=== PATIENT | female | born 1965 | race Caucasian/White ===

== ENCOUNTER → 2017-03-13 | Outpatient (CLI) | payer OTHER, SELFPAY | PROVIDERS: Visit Provider Nurse Practitioner Obstetrics & Gynecology | DX: Z12.31 Encounter for screening mammogram for malignant neoplasm of breast (principal) | CPT/HCPCS: 77067; G0202 ==

== ENCOUNTER → 2018-04-03 09:53 | Outpatient (CLI) | payer OTHER, SELFPAY ==
--- NOTE | 2018-04-03 09:56 | XR_ITS ---
XR chest 2V CLINICAL INDICATION: ITS.REASON: SOB ORDERING PHYSICIAN: German Broderick MD PATIENT AGE: 52 years Comparison: 01/05/2014 FINDINGS: Unremarkable cardiovascular structures. No suspicious nodules lobar consolidation or collapse. No acute bony anomalies. IMPRESSION: No change with no acute finding
== END ==
PROVIDERS: PCP Family Medicine; Visit Provider Family Medicine
DX: R06.02 Shortness of breath (principal)
CPT/HCPCS: 71046

== ENCOUNTER → 2018-04-08 14:28 | Outpatient (CLI) | payer OTHER, SELFPAY ==
--- NOTE | 2018-04-08 14:43 | CT_ITS ---
CT chest w con HISTORY: ITS.REASON: SOA,TOBACCO USE,RESPIRATORY CRACKLES LT CHEST WALL ORDERING PHYSICIAN: Michelle Perales MD PATIENT AGE: 52 years COMPARISON: None TECHNIQUE: Axial images obtained following the administration of 75 mL of Isovue 370 . Sagittal, and coronal reformatted images are also generated and reviewed. All CT scans at the facility use one or more dose reduction, viz: automated exposure control, ma/kV adjustment per patient size (including targeted exams where dose is matched to indication, i.e. head), or iterative reconstruction technique. FINDINGS: No evidence of aortic aneurysm or dissection. No evidence of central pulmonary embolus. Normal heart size with no evidence of pericardial effusion. There is a small pretracheal lymph node at 16 x 12 mm nonspecific. No mediastinal or hilar mass. There are paraseptal emphysematous changes. There is mild bronchial thickening along with mild coarsening of the bronchovascular markings which may be seen with smoking-related lung disease. Calcified granuloma is present in the left upper lobe anteriorly. There are mild atelectatic or fibrotic changes in the lung bases with some subpleural thickening in the left lower lobe posteriorly. Upper abdominal images show fatty liver infiltration. No acute bony anomalies. Scattered small nodes present in the axilla. IMPRESSION: 1. Mild coarsening of bronchovascular markings along with mild paraseptal emphysema and bronchial thickening consistent with obstructive chronic bronchitis/smoking-related lung disease. 2. Old granulomatous disease. 3. Other nonacute findings as described above
== END ==
PROVIDERS: PCP Family Medicine; Visit Provider Emergency Medicine
DX: R09.89 Other specified symptoms and signs involving the circulatory and respiratory systems (principal); R06.02 Shortness of breath; F17.200 Nicotine dependence, unspecified, uncomplicated
CPT/HCPCS: 71260; Q9967

== ENCOUNTER → 2019-03-02 08:10 | Outpatient (CLI) | payer OTHER, SELFPAY ==
--- NOTE | 2019-03-02 10:00 | MM_ITS ---
PROCEDURE: MM DIG SCREENING MAMM BI W/CAD Patient Age:53Y CLINICAL INDICATION: Routine Screening Mammogram: No hormones, no new complaints. Noncontributory family history. Patient has had a previous left breast benign excisional biopsy COMPARISON: [facility] DIGITAL MAMM-SCREEN BILATERAL from 02/05/2011 [facility] DIGITAL MAMM-SCREEN BILATERAL from 02/18/2012 [facility] DIG MAMM-SCREEN ANTHONY from 03/22/2015 [facility] DIG MAMM-SCREEN ANTHONY from 03/12/2016 [facility] DIG MAMM-SCREEN ANTHONY W/CAD from 03/13/2017 TECHNIQUE: Standard CC and MLO images were obtained. R2 CAD reviewed. FINDINGS: Moderate breast density. Fibroglandular elements most evident central and towards upper-outer quadrant with overall distribution and pattern unchanged since multiple previous studies. No dominant or suspicious mass but stable mild asymmetry. No new areas of concern. Right breast stable. Left breast: Stable. Benign grouping of calcifications deep left breast but unchanged IMPRESSION: Stable bilateral mammogram. No areas of concern Bilateral follow-up 1 year recommended BI-RAD Category: 2 Benign Finding(s) FOLLOW-UP: 1YR 1 Year Follow-up (A letter has been sent to the patient regarding results of the study.) Dictated by: Danny Chacon MD 03/09/2019 13:44 Electronically signed by Danny Chacon MD in [place] 03/09/2019 13:44
== END ==
PROVIDERS: PCP Family Medicine; Visit Provider Nurse Practitioner Obstetrics & Gynecology
DX: Z12.31 Encounter for screening mammogram for malignant neoplasm of breast (principal)
CPT/HCPCS: 77067

== ENCOUNTER → 2019-09-10 08:08 | Outpatient (CLI) | payer OTHER, SELFPAY ==
[2019-09-10 10:00] LABS: Alanine Aminotransferase 33 U/L (12-78); Albumin Level 4.9 g/dl (3.5-5.0); Albumin/Globulin Ratio 1.8 (1.1-1.8); Alkaline Phosphatase 53 U/L (38-126); Anion Gap 12.7 mEq/L (5-15); Aspartate Amino Transferase 32 U/L (14-36); Bilirubin,Total 0.4 mg/dl (0.2-1.3); Blood Urea Nitrogen 15 mg/dl (7-17); Calcium 10.5 mg/dl (8.4-10.2); Carbon Dioxide 31 mmol/L (22.0-30.0); Chloride 101 mmol/L (98-107); Cholesterol 125 mg/dl (140-200); Estimated Glomerular Filt Rate 65 ml/min (>60); GFR (African American) 79 ML/MIN (>60); Globulin 2.8 g/dL (1.3-3.2); Glucose 120 mg/dl (74-100); HDL Cholesterol 42 mg/dl (40-60); Potassium 4.7 mmoL/L (3.5-5.1); Sodium 140 mmol/L (136-145); Total Protein,Serum 7.7 g/dl (6.3-8.2); Triglycerides 125 mg/dl (30-150); VLDL Cholesterol 25 mg/dL (0-40)
[2019-09-10 10:02] LABS: Hemoglobin A1C 6.5 % (4.0-6.0)
[2019-09-10 10:11] LABS: Direct LDL Cholesterol 73.95 mg/dL (100-129)
[2019-09-10 10:30] LABS: Thyroid Stimulating Hormone 2.61 uIU/mL (0.465-4.68)
== END ==
PROVIDERS: Visit Provider Physician Assistant
DX: R73.03 Prediabetes (principal); E78.2 Mixed hyperlipidemia; I10 Essential (primary) hypertension; R63.5 Abnormal weight gain
CPT/HCPCS: 36415; 80053; 80061; 83036; 84443

== ENCOUNTER → 2020-01-13 06:18 | Outpatient (CLI) | payer OTHER, SELFPAY ==
--- NOTE | 2020-01-13 06:27 | CT_ITS ---
PROCEDURE: CT LUNG SCREENING CLINICAL INDICATION: OT BALDERAS Thirty-four pack-year smoking history, asymptomatic for lung cancer COMPARISON: CT CHESTW CT chest w con from 04/08/2018 TECHNIQUE: The exam was performed on a 1[employer] [address] scanner using 2.90 mGy CTDI. A low dose helical CT CHEST was performed on a multi-detector scanner. All CT scans at the facility use one or more dose reduction, viz: automated exposure control, ma/kV adjustment per patient size (including targeted exams where dose is matched to indication, i.e. head), or iterative reconstruction technique. The LDCT was performed in a facility that meets the criteria for the screening program. Data regarding this exam was submitted to ACR which is an approved registry. The order for this exam indicates that it came as a result of a lung cancer screening counseling shard decision-making visit that included all the elements required of such a visit including smoking cessation. The radiologist interpreting this exam meets the CMS criteria for the LDCT lung cancer screening program. The exam is reported using the Lung-RADS classification scale and reported to the ACR registry. NOTE: This study was performed for the specific purposes of lung cancer screening and is not an alternative to diagnostic chest CT. RADIATION DOSE: CTDI vol(CT dose Index-volume) = 2.90mG DLP (Dose Length Product) = 100.81 mGcm FINDINGS: Changes of COPD and old granulomatous disease. No suspicious nodules are evident. Are few small mediastinal lymph nodes measuring up to 1.5 by 1 cm in the precarinal region not significantly changed. There is mild coronary artery calcification. There are degenerative changes in the thoracic spine and old left-sided rib fractures. OTHER FINDINGS: No other pertinent findings evident. IMPRESSION: Lung-RADS Category 1 Negative Follow-up: Continue annual screening with LDCT in 12 months Dictated by: Koffi Fuentes MD 01/19/2020 14:03 Koffi Fuentes MD in [place] 01/19/2020 14:03
== END ==
PROVIDERS: PCP Family Medicine; Visit Provider Family Medicine
DX: Z87.891 Personal history of nicotine dependence (principal); Z12.2 Encounter for screening for malignant neoplasm of respiratory organs

== ENCOUNTER → 2020-03-03 07:54 | Outpatient (CLI) | payer OTHER, SELFPAY ==
--- NOTE | 2020-03-03 07:54 | MM_ITS ---
PROCEDURE: MM DIG SCREENING MAMM BI W/CAD Digital Breast Tomosynthesis Included CLINICAL INDICATION: screening xmg There is no personal or family history of breast cancer. There has been a previous biopsy left breast for benign disease COMPARISON: MG [facility] DIG MAMM-SCREEN ANTHONY from 03/12/2016 MG [facility] DIG MAMM-SCREEN ANTHONY W/CAD from 03/13/2017 MG MM DIG SCREENING MAMM BI W/CAD from 03/02/2019 TECHNIQUE: Standard CC and MLO images and 3D Tomosynthesis was obtained. R2 CAD reviewed. FINDINGS: Scattered fibroglandular densities are seen in both breasts. There are no CAD markings. There is a small nodular density lower lateral left breast which was marked with a mole marker on previous exams and likely is a mole as it is seen on the most superficial darien images. There couple of benign-appearing microcalcifications left breast. There is no suspicious lesion in either breast and no suspicious microcalcifications. IMPRESSION: Fibrofatty parenchyma with no suspicious lesions seen BI-RAD Category: 2 Benign Finding(s) FOLLOW-UP: 1YR 1 Year Follow-up (A letter has been sent to the patient regarding results of the study.) Dictated by: Dr. Jarod Rapp MD 03/03/2020 12:20 Dr. Jarod Rapp MD in [place] 03/03/2020 12:20
== END ==
PROVIDERS: PCP Family Medicine; Visit Provider Nurse Practitioner Obstetrics & Gynecology
DX: Z12.31 Encounter for screening mammogram for malignant neoplasm of breast (principal)
CPT/HCPCS: 77063; 77067

== ENCOUNTER → 2021-02-23 08:34 | Outpatient (CLI) | payer OTHER, SELFPAY ==
[2021-02-23 09:30] LABS: Hemoglobin A1C 6.3 % (4.0-6.0)
[2021-02-23 10:27] LABS: Chloride 102 mmol/L (98-107)
[2021-02-23 10:28] LABS: Potassium 4.7 mmoL/L (3.5-5.1); Sodium 140 mmol/L (136-145)
[2021-02-23 10:30] LABS: Alanine Aminotransferase 17 U/L (12-78); Aspartate Amino Transferase 27 U/L (14-36); Blood Urea Nitrogen 13 mg/dl (7-17); Estimated Glomerular Filt Rate 65 ml/min (>60); GFR (African American) 78 ML/MIN (>60)
[2021-02-23 10:31] LABS: Albumin Level 4.5 g/dl (3.5-5.0); Albumin/Globulin Ratio 1.8 (1.1-1.8); Alkaline Phosphatase 77 U/L (38-126); Anion Gap 12.7 mEq/L (5-15); Bilirubin,Total 0.4 mg/dl (0.2-1.3); Carbon Dioxide 30 mmol/L (22.0-30.0); Chol/HDL Ratio 5.3 (1-3.5); Cholesterol 219 mg/dl (140-200); Globulin 2.5 g/dL (1.3-3.2); Glucose 135 mg/dl (74-100); HDL Cholesterol 41 mg/dl (40-60); Triglycerides 201 mg/dl (30-150); VLDL Cholesterol 40 mg/dL (0-40)
[2021-02-23 10:42] LABS: Direct LDL Cholesterol 156.36 mg/dL (100-129)
[2021-02-23 11:03] LABS: Thyroid Stimulating Hormone 3.13 uIU/mL (0.465-4.68)
== END ==
PROVIDERS: Visit Provider Physician Assistant
DX: I10 Essential (primary) hypertension (principal); E78.2 Mixed hyperlipidemia; E11.9 Type 2 diabetes mellitus without complications; Z13.29 Encounter for screening for other suspected endocrine disorder; Z79.899 Other long term (current) drug therapy
CPT/HCPCS: 36415; 80053; 80061; 83036; 84443

== ENCOUNTER → 2021-03-19 07:55 | Outpatient (CLI) | payer OTHER, SELFPAY ==
--- NOTE | 2021-03-19 07:55 | MM_ITS ---
PROCEDURE INFORMATION: Exam: MG Bilateral Screening 3D Mammography Exam date and time: 03/19/2021 7:55 AM Age: 55 years old Clinical indication: Screening mammogram TECHNIQUE: Imaging protocol: Bilateral screening tomosynthesis and 2D mammography including computer-aided detection (CAD) when performed. COMPARISON: 1. MG MM DIG SCREENING MAMM BI W/CAD 03/03/2020 8:06 AM 2. MG MM DIG SCREENING MAMM BI W/CAD 03/02/2019 9:57 AM 3. MG [facility] DIG MAMM-SCREEN ANTHONY W/CAD 03/13/2017 8:18 AM 4. MG [facility] DIG MAMM-SCREEN ANTHONY 03/12/2016 4:07 PM FINDINGS: MAMMOGRAPHY: Breast composition: There are scattered areas of fibroglandular density. Mass: None. Architectural distortion: No new or suspicious architectural distortion. Calcifications: No new or suspicious calcifications are present Asymmetric density: No new or suspicious asymmetric density is present Skin thickening: None. Axillary adenopathy: None. Other findings: Stable postoperative scarring on the left. IMPRESSION: No mammographic evidence of malignancy. Recommend annual screening mammography unless otherwise clinically indicated. ASSESSMENT: BI-RADS category 2: Benign
== END ==
PROVIDERS: PCP Family Medicine; Visit Provider Nurse Practitioner Obstetrics & Gynecology
DX: Z12.31 Encounter for screening mammogram for malignant neoplasm of breast (principal)
CPT/HCPCS: 77063; 77067

== ENCOUNTER → 2021-06-09 08:59 | Outpatient (CLI) | payer OTHER, SELFPAY ==
[2021-06-09 10:32] LABS: Hemoglobin A1C 6.4 % (4.0-6.0)
[2021-06-09 11:18] LABS: Alanine Aminotransferase 23 U/L (12-78); Albumin Level 4.1 g/dl (3.5-5.0); Albumin/Globulin Ratio 1.8 (1.1-1.8); Alkaline Phosphatase 58 U/L (38-126); Anion Gap 9.8 mEq/L (5-15); Aspartate Amino Transferase 24 U/L (14-36); Bilirubin,Total 0.5 mg/dl (0.2-1.3); Blood Urea Nitrogen 13 mg/dl (7-17); Calcium 9.1 mg/dl (8.4-10.2); Carbon Dioxide 30 mmol/L (22.0-30.0); Chloride 106 mmol/L (98-107); Chol/HDL Ratio 4.3 (1-3.5); Cholesterol 139 mg/dl (140-200); Estimated Glomerular Filt Rate 74 ml/min (>60); GFR (African American) 90 ML/MIN (>60); Globulin 2.3 g/dL (1.3-3.2); Glucose 107 mg/dl (74-100); HDL Cholesterol 32 mg/dl (40-60); Potassium 4.8 mmoL/L (3.5-5.1); Sodium 141 mmol/L (136-145); Total Protein,Serum 6.4 g/dl (6.3-8.2); Triglycerides 186 mg/dl (30-150); VLDL Cholesterol 37 mg/dL (0-40)
[2021-06-09 11:28] LABS: Direct LDL Cholesterol 75.06 mg/dL (100-129)
== END ==
PROVIDERS: PCP Family Medicine; Referring Provider Physician Assistant; Visit Provider Family Medicine
DX: I10 Essential (primary) hypertension (principal); E11.9 Type 2 diabetes mellitus without complications; E78.2 Mixed hyperlipidemia; Z79.84 Long term (current) use of oral hypoglycemic drugs
CPT/HCPCS: 36415; 80053; 80061; 83036

== ENCOUNTER → 2022-05-03 18:07 | Outpatient (CLI) | payer OTHER, SELFPAY ==
[2022-05-03 18:41] LABS: Influenza A, PCR Not Detected (NotDetected); Influenza B, PCR Not Detected (NotDetected)
[2022-05-03 18:53] LABS: Basophils # 0.1 K/mm3 (0-0.2); Basophils % 2.7 % (0.1-2.0); Eosinophils % 0.9 % (0.1-12.0); Hematocrit 52.8 % (37.0-47.0); Hemoglobin 17.8 g/dL (12.2-16.2); Lymphocytes # 1.8 K/mm3 (0.7-4.5); Lymphocytes % 37.2 % (10-50); Mean Corpuscular HGB Conc 33.6 g/dL (31.8-35.4); Mean Corpuscular Hemoglobin 31.6 pg (27.0-31.2); Mean Corpuscular Volume 93.9 fl (81-99); Mean Platelet Volume 8.5 fl (7.4-10.4); Monocytes # 0.4 K/mm3 (0.1-1.0); Monocytes % 7.9 % (1.7-9.3); Neutrophils # 2.5 K/mm3 (1.8-7.8); Neutrophils % 51.3 % (37.0-80.0); Platelet Count 195 K/mm3 (142-424); Red Blood Count 5.62 M/mm3 (4.20-5.40); Red Cell Distribution Width 13.4 % (11.5-17.5); White Blood Count 4.9 K/mm3 (4.8-10.8)
[2022-05-03 19:49] LABS: Coronavirus 19, PCR Detected (NotDetected)
== END ==
PROVIDERS: PCP Family Medicine; Visit Provider Physician Assistant
DX: U07.1 COVID-19 (principal); R50.9 Fever, unspecified
CPT/HCPCS: 36415; 85025; C9803; U0003; U0005

== ENCOUNTER → 2022-05-18 08:08 | Outpatient (CLI) | payer OTHER, SELFPAY ==
[2022-05-18 10:10] LABS: Alanine Aminotransferase 28 U/L (12-78); Albumin Level 4.5 g/dl (3.5-5.0); Albumin/Globulin Ratio 1.9 (1.1-1.8); Alkaline Phosphatase 63 U/L (38-126); Anion Gap 5.3 mEq/L (5-15); Aspartate Amino Transferase 27 U/L (14-36); Bilirubin,Total 0.5 mg/dl (0.2-1.3); Blood Urea Nitrogen 18 mg/dl (7-17); Calcium 9.3 mg/dl (8.4-10.2); Carbon Dioxide 32 mmol/L (22.0-30.0); Chloride 107 mmol/L (98-107); Chol/HDL Ratio 4.7 (1-3.5); Cholesterol 166 mg/dl (140-200); Estimated Glomerular Filt Rate 65 ml/min (>60); GFR (African American) 78 ML/MIN (>60); Globulin 2.4 g/dL (1.3-3.2); Glucose 112 mg/dl (74-100); HDL Cholesterol 35 mg/dl (40-60); Potassium 4.3 mmoL/L (3.5-5.1); Sodium 140 mmol/L (136-145); Total Protein,Serum 6.9 g/dl (6.3-8.2); Triglycerides 262 mg/dl (30-150); VLDL Cholesterol 52 mg/dL (0-40)
[2022-05-18 10:11] LABS: Hemoglobin A1C 6.4 % (4.0-6.0)
[2022-05-18 10:23] LABS: Direct LDL Cholesterol 88.81 mg/dL (100-129)
[2022-05-18 10:41] LABS: Thyroid Stimulating Hormone 2.02 uIU/mL (0.465-4.68)
== END ==
PROVIDERS: PCP Psychiatry & Neurology Sleep Medicine; Visit Provider Physician Assistant
DX: I10 Essential (primary) hypertension (principal); E78.2 Mixed hyperlipidemia; E11.9 Type 2 diabetes mellitus without complications; R63.5 Abnormal weight gain; Z79.899 Other long term (current) drug therapy
CPT/HCPCS: 36415; 80053; 80061; 83036; 84443

== ENCOUNTER → 2022-09-21 08:10 | Outpatient (CLI) | payer OTHER, SELFPAY ==
[2022-09-21 08:54] LABS: Hemoglobin A1C 6.4 % (4.0-6.0)
[2022-09-21 08:57] LABS: Alanine Aminotransferase 30 U/L (12-78); Albumin Level 4.5 g/dl (3.5-5.0); Albumin/Globulin Ratio 1.8 (1.1-1.8); Alkaline Phosphatase 75 U/L (38-126); Anion Gap 12.1 mEq/L (5-15); Aspartate Amino Transferase 30 U/L (14-36); Bilirubin,Total 0.2 mg/dl (0.2-1.3); Blood Urea Nitrogen 21 mg/dl (7-17); Calcium 9.4 mg/dl (8.4-10.2); Carbon Dioxide 33 mmol/L (22.0-30.0); Chloride 100 mmol/L (98-107); Chol/HDL Ratio 4.6 (1-3.5); Cholesterol 139 mg/dl (140-200); Estimated Glomerular Filt Rate 64 ml/min (>60); GFR (African American) 78 ML/MIN (>60); Globulin 2.5 g/dL (1.3-3.2); Glucose 133 mg/dl (74-100); HDL Cholesterol 30 mg/dl (40-60); Potassium 4.1 mmoL/L (3.5-5.1); Sodium 141 mmol/L (136-145); Triglycerides 304 mg/dl (30-150); VLDL Cholesterol 61 mg/dL (0-40)
== END ==
PROVIDERS: PCP Physician Assistant; Visit Provider Physician Assistant
DX: E11.9 Type 2 diabetes mellitus without complications (principal); I10 Essential (primary) hypertension; E78.2 Mixed hyperlipidemia
CPT/HCPCS: 36415; 80053; 80061; 83036

== ENCOUNTER → 2022-10-01 12:01 | Outpatient (CLI) | payer OTHER, SELFPAY ==
--- NOTE | 2022-10-01 12:04 | XR_ITS ---
FINAL REPORT CLINICAL HISTORY: COUGH X 2 weeks , cough with phlegm, soa, chest tightnesss, smoker x 40 years FINDINGS: TWO-VIEW CHEST The heart size is normal. The mediastinum is normal. There is mild linear atelectasis or scar in the left mid lung. There is no pneumothorax. IMPRESSION: Left mid lung atelectasis or scar. Reviewed, Interpreted and Dictated by Morris Carrero III, MD Transcribed by Tatiana Gerber Authenticated and [facility]
== END ==
PROVIDERS: PCP Physician Assistant; Visit Provider Physician Assistant
DX: R05.9 Cough, unspecified (principal)
CPT/HCPCS: 71046

== ENCOUNTER → 2022-11-26 14:51 | Outpatient (CLI) | payer OTHER, SELFPAY ==
--- NOTE | 2022-11-26 14:51 | MM_ITS ---
PROCEDURE INFORMATION: Exam: MG Bilateral Screening 3D Mammography Exam date and time: 11/26/2022 2:47 PM Age: 57 years old Clinical indication: Screening examination; No personal or family history of breast cancer TECHNIQUE: Imaging protocol: Bilateral Screening tomosynthesis and 2D mammography including computer-aided detection (CAD) when performed. COMPARISON: 1. MG MM DIG SCREENING MAMM BI W/CAD 03/19/2021 7:55 AM 2. MG MM DIG SCREENING MAMM BI W/CAD 03/03/2020 8:06 AM FINDINGS: MAMMOGRAPHY: Breast composition: There are scattered areas of fibroglandular density. Mass: None. Architectural distortion: None. Calcifications: No suspicious calcifications. Asymmetric density: None. Skin thickening: None. Axillary adenopathy: None. IMPRESSION: No mammographic evidence of malignancy. Annual screening is recommended unless otherwise clinically indicated. ASSESSMENT: BI-RADS Category 1: Negative
== END ==
PROVIDERS: PCP Physician Assistant; Visit Provider Nurse Practitioner Obstetrics & Gynecology
DX: Z12.31 Encounter for screening mammogram for malignant neoplasm of breast (principal)
CPT/HCPCS: 77063; 77067

== ENCOUNTER → 2022-12-14 09:20 | Outpatient (CLI) | payer OTHER, SELFPAY ==
[2022-12-14 10:54] LABS: Hemoglobin A1C 6.2 % (4.0-6.0)
[2022-12-14 10:57] LABS: Alanine Aminotransferase 28 U/L (12-78); Albumin Level 4.4 g/dl (3.5-5.0); Albumin/Globulin Ratio 1.7 (1.1-1.8); Alkaline Phosphatase 65 U/L (38-126); Anion Gap 11.7 mEq/L (5-15); Aspartate Amino Transferase 29 U/L (14-36); Bilirubin,Total 0.4 mg/dl (0.2-1.3); Blood Urea Nitrogen 15 mg/dl (7-17); Calcium 9.9 mg/dl (8.4-10.2); Carbon Dioxide 35 mmol/L (22.0-30.0); Chloride 101 mmol/L (98-107); Chol/HDL Ratio 4.9 (1-3.5); Cholesterol 147 mg/dl (140-200); Estimated Glomerular Filt Rate 64 ml/min (>60); GFR (African American) 78 ML/MIN (>60); Globulin 2.6 g/dL (1.3-3.2); Glucose 111 mg/dl (74-100); HDL Cholesterol 30 mg/dl (40-60); Potassium 4.7 mmoL/L (3.5-5.1); Sodium 143 mmol/L (136-145); Triglycerides 207 mg/dl (30-150); VLDL Cholesterol 41 mg/dL (0-40)
[2022-12-14 11:08] LABS: Direct LDL Cholesterol 83.64 mg/dL (100-129)
== END ==
PROVIDERS: PCP Physician Assistant; Visit Provider Physician Assistant
DX: E78.00 Pure hypercholesterolemia, unspecified (principal); I10 Essential (primary) hypertension; E11.9 Type 2 diabetes mellitus without complications; Z79.84 Long term (current) use of oral hypoglycemic drugs
CPT/HCPCS: 36415; 80053; 80061; 83036

== ENCOUNTER 2023-05-13 10:44 | Emergency (ER) | payer OTHER, SELFPAY ==
[2023-05-13 11:05] VITALS: BP 135/72; PULSE 88; RESP 12; TEMP 37.4; O2SAT 99; BMI 34.0
--- NOTE | 2023-05-13 11:41 | EXP.UTC ---
Discharge Plan Disposition Patient Disposition: Home, Self-Care Condition: Good Prescriptions Prescriptions: New benzonatate [benzonatate] 100 mg capsule 100 mg PO TIDP PRN (Reason: Cough) Qty: 30 0RF ondansetron 4 mg Tablet,Disintegrating 4 mg PO Q8H PRN (Reason: Nausea) Qty: 12 0RF No Action amlodipine 5 mg tablet 5 mg PO DAILY 90 Days Qty: 90 bupropion HCl 150 mg tablet sustained-release 12 hr 150 mg PO DAILY 90 Days Qty: 90 fenofibrate nanocrystallized 145 mg tablet 145 mg PO DAILY 90 Days Qty: 90 lorazepam 0.5 mg tablet 0.5 mg PO DAILY 30 Days Qty: 30 metoprolol succinate 50 mg tablet extended release 24 hr 50 mg PO DAILY 90 Days Qty: 90 triamterene-hydrochlorothiazid 37.5-25 mg tablet 1 tab PO DAILY 90 Days Qty: 90 doxazosin 1 mg tablet 1 mg PO DAILY Qty: 30 losartan 50 mg tablet 50 mg PO DAILY Qty: 60 pravastatin 40 mg tablet 40 mg PO DAILY Qty: 90 Referrals Follow up/Referrals: Vivien Manzano MD [Primary Care Provider] - See instructions Activity Restrictions/Add. Instructions Additional Instructions/Restrictions: Drink plenty of fluids. Take tylenol or ibuprofen for pain or fever. Take the medications as directed. Follow up with your regular doctor. GO TO THE ER FOR ANY WORSENING SYMPTOMS Clinical Impressions Clinical Impression: Influenza A Stand Alone Forms Stand Alone Forms: Work/School Release Instructions Patient Instructions: DI for Influenza -- Adult, Ondansetron, Benzonatate Discharge ED Provider: Roney Short [facility] General Stated complaint: fever, bodyaches Time Seen by Provider: 05/13/23 11:41 History of Present Illness Provider Complaint: She states that for the past 1 day she has fever, malaise, and body aches. Related Data Home Medications Medication Instructions Recorded Confirmed amlodipine 5 mg tablet 5 mg PO DAILY 90 days #90 tabs 12/25/22 12/25/22 bupropion HCl 150 mg tablet,12 hr 150 mg PO DAILY 90 days #90 ea 12/25/22 12/25/22 sustained-release doxazosin 1 mg tablet 1 mg PO DAILY #30 tabs 12/25/22 12/25/22 fenofibrate nanocrystallized 145 145 mg PO DAILY 90 days #90 tabs 12/25/22 12/25/22 mg tablet lorazepam 0.5 mg tablet 0.5 mg PO DAILY 30 days #30 tabs 12/25/22 12/25/22 losartan 50 mg tablet 50 mg PO DAILY #60 tabs 12/25/22 12/25/22 metoprolol succinate 50 mg 50 mg PO DAILY 90 days #90 tabs 12/25/22 12/25/22 tablet,extended release 24 hr pravastatin 40 mg tablet 40 mg PO DAILY #90 tabs 12/25/22 12/25/22 triamterene 37.5 1 tab PO DAILY 90 days #90 tabs 12/25/22 12/25/22 mg-hydrochlorothiazide 25 mg tablet Previous Rx's Medication Instructions Recorded benzonatate 100 mg capsule 100 mg PO TIDP PRN Cough #30 caps 05/13/23 ondansetron 4 mg disintegrating 4 mg PO Q8H PRN Nausea #12 tabs 05/13/23 tablet Allergies Allergy/AdvReac Type Severity Reaction Status Date / Time acetaminophen [From Lortab] Allergy Intermediate itching Verified 05/13/23 12:04 hydrocodone [From Lortab] Allergy Intermediate itching Verified 05/13/23 12:04 PFS PFSH Disclaimer: The information contained in this section may have been updated after the patient was seen, as this information can be updated by other users. Surgical History H/O total hysterectomy History of cholecystectomy Family History Other Alcoholism Anemia Cancer Coronary artery disease Diabetes Hyperlipidemia Hypertension Kidney disease Social History Smoking Status: Current every day smoker tobacco type: cigarettes alcohol intake: never substance use type: denies use current occupational status: employed Travel in the last 8 weeks: None ROS Obtained: Yes All systems reviewed & no additional complaints except as documented Constitutional Constitutional: Reports chills and Reports fever(s) Eyes Eyes: Denies eye discharge ENT Ears, Nose, Mouth, and Throat: Reports as per HPI Cardiovascular Cardiovascular: Denies chest pain Respiratory Respiratory: Denies chest congestion and Reports cough Gastrointestinal Gastrointestingal: Reports nausea; Denies abdominal pain, constipation, cramping, diarrhea or vomiting Musculoskeletal Musculoskeletal: Denies arthralgias Integumentary/Breasts Skin/Breast: Denies rash Neurologic Neurologic: Denies paresthesias Physical Exam General General appearance: alert and in no apparent distress Head Head exam: atraumatic, normocephalic and normal inspection Eye Eye exam: Present normal appearance, PERRL and EOMI ENT ENT exam: Present normal exam, normal oropharynx, mucous membranes moist, TM's normal bilaterally and normal external ear exam Neck Neck exam: Present normal inspection, full ROM and trachea midline; Absent meningismus or lymphadenopathy Chest Chest inspection: Present normal inspection and symmetric chest wall rise; Absent tenderness Respiratory Respiratory exam: Present normal lung sounds bilaterally; Absent respiratory distress Cardiovascular Cardiovascular exam: Present regular rate and normal rhythm; Absent JVD Abdominal Exam Abdominal exam: Present soft and normal bowel sounds; Absent distention, tenderness or guarding Extremities Exam Extremities exam: Present normal inspection, full ROM and normal capillary refill; Absent calf tenderness Back Exam Back exam: Present normal inspection; Absent tenderness Neurological Exam Neurological exam: Present alert and oriented X3 Psychiatric Psychiatric exam: Present normal affect and normal mood Skin Skin exam: Present warm, dry, intact and normal color Lymphatic Lymphatic Findings: no adenopathy Medical Decision Making Medical Records Medical records reviewed: No I reviewed the patient's medical records. Marv Inquiry Pt receiving controlled substance: No Lab Data Lab results reviewed: Yes I reviewed the patient's lab results.
[2023-05-13 12:05] LABS: UTC Influenza A Antigen Positive (Negative)
[2023-05-13 12:06] LABS: UTC Influenza B Antigen Negative (Negative)
[2023-05-13 12:15] VITALS: BP 135/72; PULSE 88; RESP 12; TEMP 37.4; O2SAT 99
== END 2023-05-13 12:15 | disposition home or self-care (01) ==
PROVIDERS: Emergency Provider Nurse Practitioner Family; PCP Family Medicine
DX: J10.1 Influenza due to other identified influenza virus with other respiratory manifestations (principal); R50.9 Fever, unspecified; R05.9 Cough, unspecified; R11.0 Nausea; F17.210 Nicotine dependence, cigarettes, uncomplicated
CPT/HCPCS: 87804; 99204; 99212; G0463

== ENCOUNTER 2023-07-05 08:15 | Outpatient (CLI) | payer OTHER, SELFPAY ==
[2023-07-05 09:40] LABS: Hemoglobin A1C 6.4 % (4.0-6.0)
[2023-07-05 10:09] LABS: Alanine Aminotransferase 20 U/L (12-78); Albumin Level 4.5 g/dl (3.5-5.0); Albumin/Globulin Ratio 1.7 (1.1-1.8); Alkaline Phosphatase 68 U/L (38-126); Anion Gap 11.2 mEq/L (5-15); Aspartate Amino Transferase 26 U/L (14-36); Bilirubin,Total 0.6 mg/dl (0.2-1.3); Blood Urea Nitrogen 18 mg/dl (7-17); Calcium 9.8 mg/dl (8.4-10.2); Carbon Dioxide 32 mmol/L (22.0-30.0); Chloride 103 mmol/L (98-107); Chol/HDL Ratio 4.7 (1-3.5); Cholesterol 150 mg/dl (140-200); Estimated Glomerular Filt Rate 64 ml/min (>60); GFR (African American) 78 ML/MIN (>60); Globulin 2.6 g/dL (1.3-3.2); Glucose 113 mg/dl (74-100); HDL Cholesterol 32 mg/dl (40-60); Potassium 4.2 mmoL/L (3.5-5.1); Sodium 142 mmol/L (136-145); Total Protein,Serum 7.1 g/dl (6.3-8.2); Triglycerides 181 mg/dl (30-150); VLDL Cholesterol 36 mg/dL (0-40)
[2023-07-05 10:20] LABS: Direct LDL Cholesterol 74.18 mg/dL (100-129)
[2023-07-05 10:42] LABS: Thyroid Stimulating Hormone 2.33 uIU/mL (0.465-4.68)
== END 2023-07-05 23:59 | disposition home or self-care (01) ==
LOC: LAB 08:16
PROVIDERS: PCP Physician Assistant; Visit Provider Family Medicine
DX: E78.2 Mixed hyperlipidemia (principal); I10 Essential (primary) hypertension; E11.9 Type 2 diabetes mellitus without complications; F17.210 Nicotine dependence, cigarettes, uncomplicated
CPT/HCPCS: 36415; 80053; 80061; 83036; 84443

== ENCOUNTER 2023-12-13 09:22 | Outpatient (CLI) | payer OTHER, SELFPAY ==
[2023-12-13 10:11] LABS: Basophils # 0.1 K/mm3 (0-0.2); Basophils % 1.7 % (0.1-2.0); Eosinophils # 0.3 K/mm3 (0.0-0.4); Eosinophils % 4.5 % (0.1-12.0); Hematocrit 51.9 % (37.0-47.0); Hemoglobin 16.7 g/dL (12.2-16.2); Lymphocytes # 2.2 K/mm3 (0.7-4.5); Lymphocytes % 31.6 % (10-50); Mean Corpuscular HGB Conc 32.1 g/dL (31.8-35.4); Mean Corpuscular Hemoglobin 31.7 pg (27.0-31.2); Mean Corpuscular Volume 98.8 fl (81-99); Mean Platelet Volume 7.4 fl (7.4-10.4); Monocytes # 0.4 K/mm3 (0.1-1.0); Monocytes % 5.7 % (1.7-9.3); Neutrophils # 3.9 K/mm3 (1.8-7.8); Neutrophils % 56.4 % (37.0-80.0); Platelet Count 274 K/mm3 (142-424); Red Blood Count 5.26 M/mm3 (4.20-5.40); Red Cell Distribution Width 14.2 % (11.5-17.5)
[2023-12-13 10:36] LABS: Alanine Aminotransferase 29 U/L (12-78); Albumin Level 4.4 g/dl (3.5-5.0); Albumin/Globulin Ratio 1.8 (1.1-1.8); Alkaline Phosphatase 65 U/L (38-126); Anion Gap 8.3 mEq/L (5-15); Aspartate Amino Transferase 30 U/L (14-36); Bilirubin,Total 0.5 mg/dl (0.2-1.3); Blood Urea Nitrogen 16 mg/dl (7-17); Calcium 9.9 mg/dl (8.4-10.2); Carbon Dioxide 32 mmol/L (22.0-30.0); Chloride 102 mmol/L (98-107); Chol/HDL Ratio 4.6 (1-3.5); Cholesterol 176 mg/dl (140-200); Estimated Glomerular Filt Rate 73 ml/min (>60); GFR (African American) 89 ML/MIN (>60); Globulin 2.5 g/dL (1.3-3.2); Glucose 125 mg/dl (74-100); HDL Cholesterol 38 mg/dl (40-60); Potassium 4.3 mmoL/L (3.5-5.1); Sodium 138 mmol/L (136-145); Total Protein,Serum 6.9 g/dl (6.3-8.2); Triglycerides 245 mg/dl (30-150); VLDL Cholesterol 49 mg/dL (0-40)
[2023-12-13 10:47] LABS: Direct LDL Cholesterol 95.03 mg/dL (100-129)
[2023-12-13 11:07] LABS: Thyroid Stimulating Hormone 3.63 uIU/mL (0.465-4.68)
== END 2023-12-13 23:59 | disposition home or self-care (01) ==
LOC: LAB 09:23
PROVIDERS: PCP Physician Assistant; Visit Provider Physician Assistant
DX: E78.2 Mixed hyperlipidemia (principal); I10 Essential (primary) hypertension; E11.9 Type 2 diabetes mellitus without complications
CPT/HCPCS: 36415; 80050; 80053; 80061; 83036; 84443; 85025

== ENCOUNTER 2023-12-24 13:22 | Outpatient (CLI) | payer OTHER, SELFPAY ==
--- NOTE | 2023-12-24 13:26 | MM_ITS ---
PROCEDURE INFORMATION: Exam: MG Bilateral Screening 3D Mammography Exam date and time: 12/24/2023 1:16 PM Age: 58 years old Clinical indication: Screening examination TECHNIQUE: Imaging protocol: Bilateral Screening tomosynthesis and 2D mammography including computer-aided detection (CAD) when performed. COMPARISON: 1. MG MM DIG SCREENING MAMM BI W/CAD 11/26/2022 2:47 PM 2. MG MM DIG SCREENING MAMM BI W/CAD 03/19/2021 7:55 AM FINDINGS: MAMMOGRAPHY: Breast composition: There are scattered areas of fibroglandular density. Mass: No suspicious masses. Architectural distortion: None. Calcifications: No suspicious calcifications. Asymmetric density: None. Skin thickening: None. Axillary adenopathy: None. IMPRESSION: No mammographic evidence of malignancy. Annual screening is recommended unless otherwise clinically indicated. ASSESSMENT: BI-RADS Category 1: Negative.
--- NOTE | 2023-12-24 13:35 | CT_ITS ---
FINAL REPORT TECHNIQUE: Axial CT images of the chest were obtained without contrast. Low-dose protocol was utilized. This study was performed with techniques to keep radiation doses as low as reasonably achievable (ALARA). Individualized dose reduction techniques using automated exposure control or adjustment of mA and/or kV according to the patient's size were employed. CLINICAL HISTORY: SCREENING 1 ppd x 40 years COMPARISON: 01/13/2020 FINDINGS: CT CHEST WITHOUT, LOW DOSE SCREENING CT Di Vol: 2.90 mGy DLP: 96.38 mGy*cm Precarinal and right paratracheal lymph nodes are noted. Precarinal lymph nodes measure up to 1.6 cm. The heart size is normal. There is no pleural or pericardial effusion. The lung windows show no suspicious mass or nodule. There are calcified granulomas in the anterior left upper lobe. Limited images of the upper abdomen demonstrate mild fatty infiltration of the liver. IMPRESSION: No suspicious mass or nodule. LR Category 1: 12 month follow-up low-dose chest CT is recommended per Fleischner criteria. Reviewed, Interpreted and Dictated by Jalen Milan MD Transcribed by Concepción Boswell Authenticated and . [facility]
== END 2023-12-24 23:59 | disposition home or self-care (01) ==
LOC: RAD 13:22
PROVIDERS: PCP Physician Assistant; Visit Provider Physician Assistant
DX: Z12.31 Encounter for screening mammogram for malignant neoplasm of breast (principal); F17.210 Nicotine dependence, cigarettes, uncomplicated
CPT/HCPCS: 71271; 77063; 77067

== ENCOUNTER → 2024-01-05 06:40 | Outpatient (CLI) | payer OTHER, SELFPAY | LOC: SL 06:41 | PROVIDERS: PCP Physician Assistant; Visit Provider Physician Assistant | DX: R06.83 Snoring (principal) | CPT/HCPCS: 95806 ==

== ENCOUNTER 2024-02-02 11:20 | Day surgery (SDC) | payer OTHER, SELFPAY ==
[2024-01-30 13:12] VITALS: BMI 35.1
[2024-02-02] VITALS (9 sets, daily range): BP systolic 106–148; BP diastolic 63–81; PULSE 62–80; RESP 16–18; TEMP 36.7; O2SAT 92–96
--- NOTE | 2024-02-02 11:50 | P.PNANES_ITS ---
[facility] Disclaimer: The information contained in this section may have been updated after the patient was seen, as this information can be updated by other users. Medical History COPD (chronic obstructive pulmonary disease) History of gastroesophageal reflux (GERD) Diabetes mellitus, type 2 Hyperlipidemia Hypertension Sleep apnea Surgical History History of cholecystectomy H/O total hysterectomy Family History Other Alcoholism Anemia Cancer Coronary artery disease Diabetes Hyperlipidemia Hypertension Kidney disease Social History Smoking Status: Current every day smoker tobacco type: cigarettes alcohol intake: never substance use type: denies use current occupational status: employed Travel in the last 8 weeks: Inside the [place] [facility] Anesthesia Checklist Patient Identification Patient Identification: Arm Band and Verbal (Name & ) Structural Data Admitted From: Home Planned Operative Procedure/s: EGD/Colonoscopy Consent for Planned Operative Procedure(s) Verified: Yes Verified Documents: Surgical Consent and History and Physical NPO Status Verified Time NPO: 10:00 (water) Additional verifications Anesthesia Reactions: No Airway Assessment Mallampati Score:: Class II C-Spine Mobility Assessed: Yes TMJ Mobility Assessed: Yes Dentition: Good Dentition Neurological Assessment Level of Consciousness: Awake Hx Seizures: No Numbness or tingling in extremities: No Anesthesia Plan Anesthesia Risk discussed: Yes Anesthesia Plan: Verified ASA Class: III Anesthesia Type: MAC
[2024-02-02 11:56] LABS: POC Glucose,Bedside 108 (70-110)
[2024-02-02] MEDS: 0.9 % SODIUM CHLORIDE 1000ML 1,000 ML 25 ML IV (11:56)
--- NOTE | 2024-02-02 12:11 | P.HP_ITS ---
History of Present Illness *Admission Date: 02/02/24 *Reason for visit:: Dyspepsia/reflux/diarrhea *History of present illness: Mrs. Dhaliwal is a 58-year-old female who is here for diagnostic panendoscopy. The patient has had dyspepsia, bloating and diarrhea. She does get reflux and takes omeprazole. She has never had a colonoscopy. The examination is deemed medically necessary for EGD and colonoscopy. The patient has been seen, interviewed and examined prior to the procedure by both myself and the anesthesia provider. [facility] Disclaimer: The information contained in this section may have been updated after the patient was seen, as this information can be updated by other users. Medical History COPD (chronic obstructive pulmonary disease) History of gastroesophageal reflux (GERD) Diabetes mellitus, type 2 Hyperlipidemia Hypertension Sleep apnea Surgical History History of cholecystectomy H/O total hysterectomy Family History Other Alcoholism Anemia Cancer Coronary artery disease Diabetes Hyperlipidemia Hypertension Kidney disease Social History Smoking Status: Current every day smoker tobacco type: cigarettes alcohol intake: never substance use type: denies use current occupational status: employed Travel in the last 8 weeks: Inside the [place] Other Medical History Have you received the Flu Vaccine for this season: Yes Have you received the Pneumonia Vaccine: No Review of Systems Review of Systems Review of systems (narrative): Negative *Cardiovascular Comments: Negative *Gastrointestinal Comments: Negative *Genitourinary Comments: Negative *Musculoskeletal Comments: Negative *Neurologic Comments: Negative Meds Home Medications and Allergies Home Medications ?Medication ?Instructions ?Recorded ?Confirmed ?Type amlodipine 5 mg tablet 5 mg PO DAILY 90 days #90 tabs 12/25/22 02/02/24 History lorazepam 0.5 mg tablet 0.5 mg PO DAILY 30 days #30 tabs 12/25/22 02/02/24 History losartan 50 mg tablet 50 mg PO DAILY #60 tabs 12/25/22 02/02/24 History metoprolol succinate 50 mg 50 mg PO DAILY 90 days #90 tabs 12/25/22 02/02/24 History tablet,extended release 24 hr aspirin 81 mg capsule 81 mg PO DAILY 02/02/24 02/02/24 History escitalopram oxalate 10 mg tablet 10 mg PO DAILY 02/02/24 02/02/24 History omeprazole 40 mg capsule,delayed 40 mg PO DAILY 02/02/24 02/02/24 History release rosuvastatin 5 mg tablet 5 mg PO DAILY 02/02/24 02/02/24 History tirzepatide 2.5 mg/0.5 mL 2.5 mg SQ WEEKLY 02/02/24 02/02/24 History subcutaneous pen injector (Mounjaro) New Prescriptions to Start Prescriptions: Allergies Allergy/AdvReac Type Severity Reaction Status Date / Time hydrocodone Allergy Rash Verified 02/02/24 11:41 Exam Data for Last 24 hours Vital signs and Labs for Last 24 Hours: Temp Pulse Resp BP Pulse Ox O2 Del Method O2 Flow Rate 98.1 F 80 16 148/75 H 93 L Nasal Cannula 5 02/02/24 11:50 02/02/24 11:50 02/02/24 11:50 02/02/24 11:50 02/02/24 11:50 02/02/24 12:04 02/02/24 12:04 Laboratory Results - last 24 hr 02/02/24 11:49: POC Glucose 108 I & O for Last 24 hours: Intake & Output 01/30/24 01/31/24 02/01/24 02/02/24 23:59 23:59 23:59 23:59 Weight 192 lb *Routine HEENT Exam Head: Present normocephalic Eye: Present EOMI and PERRL ENT: Present mucous membranes moist *Routine Neck Exam Neck: Present supple *Routine Respiratory Exam Respiratory: Present CTA bilaterally *Routine Cardiovascular Exam Cardiovascular: Present RRR *Routine Abdominal Exam Abdominal: Present soft and normoactive bowel sounds; Absent tenderness *Routine Rectal Exam Rectal:: deferred *Routine Genitalia Exam Genitalia:: deferred *Routine Extremities Exam Extremities: Absent cyanosis, clubbing or edema *Routine Skin Exam Skin: Present warm; Absent rash *Routine Neurological Exam Neurological: Present alert and oriented X3 Assessment and Plan *Assessment and plan (1) Dyspepsia: Status: Acute Category: Medical Code(s): R10.13 - Epigastric pain (2) Epigastric pain: Status: Acute Category: Medical Code(s): R10.13 - Epigastric pain (3) Bloating: Status: Acute Category: Medical Code(s): R14.0 - Abdominal distension (gaseous) (4) GERD (gastroesophageal reflux disease): Status: Acute Category: Medical Code(s): K21.9 - Gastro-esophageal reflux disease without esophagitis (5) Diarrhea: Status: Acute Category: Medical Code(s): R19.7 - Diarrhea, unspecified Plan A/P: 1. GERD/dyspepsia, bloating and diarrhea is the preprocedural diagnosis. The patient will be anesthetized/sedated using MAC sedation. The patient has been seen and examined. Cardiac and lung assessment prior to the examination is stable. Proceed with planned panendoscopy
--- NOTE | 2024-02-02 12:15 | P.PCN_ITS ---
[facility] Procedure Note Date: 02/02/24 Time: 12:25 Procedure Note:: Upper Endoscopy Procedure Report: Esophagogastroduodenoscopy with cold biopsies and TTS balloon dilation Endoscopost: Ulisses Bhagat II, MD Referring Physician: Vanessa GAMING Date of Procedure: February 02, 2024 Equipment: Olympus GIF 190 standard upper endoscope Sedation: MAC sedation Indications: Mrs. Dhaliwal is a 58-year-old female who is here for diagnostic upper endoscopy secondary to persistent dyspepsia. She reports epigastric abdominal pain and discomfort with heartburn and reflux. She reports bloating, gassiness and some belching. She does get choked easily on certain foods and has dysphagia to large tablets. She reports early satiety but no nausea. She also reports chronic diarrhea. She reports no hematochezia, melena, weight loss or family history of gastric or esophageal cancer. Procedure: Prior to the procedure, a history and physical exam was performed, and patient's medications and allergies were reviewed. The risks, benefits and alternatives of the sedation and procedure were discussed with the patient. All questions were answered and informed consent was obtained. The patient was brought to the procedure room. Patient identification and proposed procedure were verified by the physician and the nurse. The patient was placed in a left lateral decubitus position and the scope was passed under direct vision. Throughout the procedure, the patient's blood pressure, pulse, and oxygen saturations were monitored continuously. The upper GI endoscopy was accomplished without difficulty. The patient tolerated the procedure well. Findings: The scope was passed directly into the upper esophagus and advanced to the third portion of the duodenum. The post bulbar duodenum and duodenal bulb were normal with normal mucosa and conniventes. Cold biopsies were taken from t he duodenal bulb to rule out celiac disease. The scope was withdrawn through a normal duodenal bulb and pylorus into the stomach. There was some mild linear reactive gastropathy of the antrum. There was mild chronic gastritis of the body and fundus of the stomach. Biopsies were taken along the lesser curvature to rule out H. pylori. Upon retroflexion there was no hiatal hernia. The scope was then withdrawn into the esophagus. There was no evidence of reflux esophagitis or Pineda's. There was no Schatzki's ring or strictures. There was no corrugation. The entire esophagus was dilated to 60 Romanian/20 mm with a TTS hydrostatic balloon. There was some resistance at the cricopharyngeus/cricopharyngeal spasm. The remainder of the esophageal mucosa was normal. Impression: 1. 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 Mild linear reactive gastropathy and mild chronic gastritis with bile reflux Plan: I do feel that the patient has functional dyspepsia and functional GERD. We will discuss additional treatment options. I will follow-up the biopsies and I will proceed with colonoscopy.
--- NOTE | 2024-02-02 12:26 | HMH.PROCNOTE ---
[facility] Procedure Note Date: 02/02/24 Time: 12:42 Procedure Note:: Colonoscopy Procedure Report: Colonoscopy with cold biopsy Endoscopist: Ulisses Bhagat II, MD Referring physician: Vanessa GAMING Date of Procedure: February 02, 2024 Equipment: Olympus 190 variable stiffness pediatric colonoscope Sedation: MAC sedation Indication: Mrs. Dhaliwal is a 58-year-old female who is here for diagnostic colonoscopy. The patient has had chronic diarrhea, gassiness and bloating. She does get some epigastric discomfort/dyspepsia and lower abdominal discomfort. She reports intermittent but rare bright red blood (attributable to hemorrhoids). She reports no weight loss or family history of colon cancer. This is her first colonoscopy. Procedure: Prior to the procedure, a history and physical exam was performed, and patient's medications and allergies were reviewed. The risks, benefits and alternatives of the sedation and procedure were discussed with the patient. All questions were answered and informed consent was obtained. The patient was brought to the procedure room. Patient identification and proposed procedure were verified by the physician and the nurse. The patient was placed in a left lateral decubitus position and the scope was passed under direct vision. Throughout the procedure, the patient's blood pressure, pulse, and oxygen saturations were monitored continuously. The colonoscopy was accomplished without difficulty. The patient tolerated the procedure well. Findings: On digital rectal examination there was normal rectal tone. There were no external hemorrhoids. The colonoscope was introduced through the anal canal to the rectum and advanced to the cecum. The ileocecal valve and appendiceal orifice were identified. The scope was advanced a short distance into the ileum which appeared grossly normal. The scope was then withdrawn into the colon. There was a small nonbleeding angiodysplasia/AVM in the cecum. The remaining cecum, ascending, transverse, descending, sigmoid and rectum were grossly normal. There was a small 2 to 3 mm polyp in the rectum removed via cold biopsy. There were no mucosal abnormalities identified. Upon retroflexion within the rectum there were grade 1-2 internal hemorrhoids.The preparation was excellent throughout with Charlotte Preparation Score of 9. The cecal time was 10 minutes. Impression: 1. 2 to 3 mm rectal polyp 2. Small cecal AVM (nonbleeding) 3. Grade 1-2 internal hemorrhoids Plan: I will follow-up the polyp histology and recommend repeat surveillance colonoscopy again in 7 to 10 years. I would encourage fiber bulk (FiberCon) and we will discuss treatment options for her IBS with diarrhea.
== END 2024-02-02 14:00 | disposition home or self-care (01) ==
PROVIDERS: PCP Family Medicine; Visit Provider Internal Medicine Gastroenterology
PROC: 0DJ08ZZ Inspection of Upper Intestinal Tract, Via Natural or Artificial Opening Endoscopic (ICD-10-PCS; CPT 43235; principal; 2024-02-02 12:30)
DX: R14.0 Abdominal distension (gaseous) (principal); K21.9 Gastro-esophageal reflux disease without esophagitis; R19.7 Diarrhea, unspecified; K30 Functional dyspepsia; K58.0 Irritable bowel syndrome with diarrhea; J39.2 Other diseases of pharynx; K22.4 Dyskinesia of esophagus; K31.9 Disease of stomach and duodenum, unspecified; K29.70 Gastritis, unspecified, without bleeding; Z72.0 Tobacco use; K63.5 Polyp of colon; K64.8 Other hemorrhoids
CPT/HCPCS: 43239; 43249; 45380; 82962; C1726; J7030

== ENCOUNTER 2024-03-12 14:25 | Outpatient (CLI) | payer OTHER, SELFPAY ==
--- NOTE | 2024-03-12 14:28 | XR_ITS ---
FINAL REPORT CLINICAL HISTORY: Severe nocturnal hypoxemia, suspected COPD cough, wheezing, shortness of breath, smoker x 40 yrs COMPARISON: 10/01/2022 FINDINGS: No acute pulmonary density is evident. There is no evidence of effusion or other pleural disease. The mediastinum has a normal appearance. The cardiac silhouette is unremarkable. IMPRESSION: Stable chest exam without acute disease. Reviewed, Interpreted and Dictated by Vivien Escobedo MD Transcribed by Meg Solomon Authenticated and . [facility]
[2024-03-12] MEDS: ALBUTEROL 0.083% 2.5 MG/3 ML NEB IH (15:06)
--- NOTE | 2024-03-12 15:06 | PC.NURSE ---
PFT and 6 Minute Walk Test completed without incident. Albuterol 0.083% given via HHN, per written protocol, Pt tolerated tx well.
== END 2024-03-12 23:59 | disposition home or self-care (01) ==
LOC: RT 14:26
PROVIDERS: PCP Family Medicine; Visit Provider Specialist
DX: J44.9 Chronic obstructive pulmonary disease, unspecified (principal); G47.34 Idiopathic sleep related nonobstructive alveolar hypoventilation
CPT/HCPCS: 71046; 94060; 94618; 94726; 94729; J7613

== ENCOUNTER 2024-05-11 13:23 | Outpatient (CLI) | payer OTHER, SELFPAY ==
--- NOTE | 2024-05-11 13:26 | US_ITS ---
FINAL REPORT CLINICAL HISTORY: .rt groin pain-- no inj COMPARISON: None FINDINGS: Limited sonographic images were obtained of the soft tissues in the right inguinal region at the area of interest. There is no fluid collection or mass identified. No evidence of hernia. There are several benign appearing predominantly fatty lymph nodes at the area of interest, largest measuring 2.1 cm. IMPRESSION: No hernia or fluid collection. Benign-appearing right inguinal lymph nodes. Reviewed, Interpreted and Dictated by Aliyah Luke MD Transcribed by Concepción Boswell Authenticated and [facility]
--- NOTE | 2024-05-11 14:15 | XR_ITS ---
FINAL REPORT CLINICAL HISTORY: HIP PAIN COMPARISON: None FINDINGS: RIGHT HIP Two views of the right hip and an AP pelvis view were obtained. There is no acute fracture or dislocation. The joint spaces are well-preserved. The visualized bony structures are well aligned. There is no acute soft tissue abnormality. IMPRESSION: No acute abnormality identified. Reviewed, Interpreted and Dictated by Aliyah Luke MD Transcribed by Meg Solomon Authenticated and [facility]
== END 2024-05-11 23:59 | disposition home or self-care (01) ==
LOC: RAD 13:24
PROVIDERS: PCP Physician Assistant; Visit Provider Nurse Practitioner Family
DX: R10.31 Right lower quadrant pain (principal); M25.551 Pain in right hip
CPT/HCPCS: 73502; 76882

== ENCOUNTER 2024-07-24 08:23 | Outpatient (CLI) | payer OTHER, SELFPAY ==
[2024-07-24 09:24] LABS: Basophils # 0.1 K/mm3 (0-0.2); Eosinophils # 0.3 Kmm3 (0.0-0.4); Eosinophils % 3.5 % (0.1-12.0); Hematocrit 48.8 % (37.0-47.0); Hemoglobin 16.5 g/dL (12.2-16.2); Lymphocytes # 2.4 K/mm3 (0.7-4.5); Lymphocytes % 33.1 % (10-50); Mean Corpuscular HGB Conc 33.8 g/dL (31.8-35.4); Mean Corpuscular Hemoglobin 31.1 pg (27.0-31.2); Mean Corpuscular Volume 91.9 fl (81-99); Mean Platelet Volume 10.2 fl (7.4-10.4); Monocytes # 0.6 K/mm3 (0.1-1.0); Neutrophils # 3.9 K/mm3 (1.8-7.8); Neutrophils % 54.1 % (37.0-80.0); Nucleated Red Blood Cells # 0 10^3/uL; Nucleated Red Blood Cells % 0 %; Platelet Count 248 K/mm3 (142-424); Red Blood Count 5.31 M/mm3 (4.20-5.40); Red Cell Distribution Width 13.1 % (11.5-17.5); Red Cell Distribution Width-SD 44.3 fL; White Blood Count 7.2 K/mm3 (4.8-10.8)
[2024-07-24 09:46] LABS: Albumin Level 4.5 g/dl (3.5-5.0)
[2024-07-24 09:47] LABS: Chloride 104 mmol/L (98-107); Potassium 4.3 mmoL/L (3.5-5.1); Sodium 140 mmol/L (136-145)
[2024-07-24 09:49] LABS: Alanine Aminotransferase 21 U/L (12-78); Anion Gap 11.3 mEq/L (5-15); Aspartate Amino Transferase 24 U/L (14-36); Blood Urea Nitrogen 19 mg/dl (7-17); Carbon Dioxide 29 mmol/L (22.0-30.0); Estimated Glomerular Filt Rate 64 ml/min (>60); GFR (African American) 78 ML/MIN (>60)
[2024-07-24 09:50] LABS: Alkaline Phosphatase 53 U/L (38-126); Bilirubin,Total 0.4 mg/dl (0.2-1.3); Calcium 9.4 mg/dl (8.4-10.2); Chol/HDL Ratio 3.6 (1-3.5); Cholesterol 127 mg/dl (140-200); Globulin 2.2 g/dL (1.3-3.2); Glucose 105 mg/dl (74-100); HDL Cholesterol 35 mg/dl (40-60); Total Protein,Serum 6.7 g/dl (6.3-8.2); Triglycerides 155 mg/dl (30-150); VLDL Cholesterol 31 mg/dL (0-40)
[2024-07-24 10:01] LABS: Direct LDL Cholesterol 64.19 mg/dL (100-129)
[2024-07-24 10:38] LABS: Hemoglobin A1C 6.1 % (4.0-6.0)
== END 2024-07-24 23:59 | disposition home or self-care (01) ==
LOC: LAB 08:25
PROVIDERS: PCP Physician Assistant; Visit Provider Physician Assistant
DX: E78.5 Hyperlipidemia, unspecified (principal); I10 Essential (primary) hypertension; E11.9 Type 2 diabetes mellitus without complications; F17.210 Nicotine dependence, cigarettes, uncomplicated
CPT/HCPCS: 36415; 80053; 80061; 83036; 85025

== ENCOUNTER 2025-01-03 13:15 | Outpatient (CLI) | payer OTHER, SELFPAY ==
--- OUTSIDE RECORDS SUMMARY | 2024-06-10 12:15 | XMS_ITS ---
Author Organization [facility] Address [address] [place] [phone] Care Team Providers Care Silverware Assembler Name Role Phone Chantell Manzano Primary Care Provider Kike Broderick [phone] REASON FOR VISIT Follow Up on BP Encounters Encounter Location Date Provider Diagnosis [facility] [address] [place] [phone] 06/10/2024 Kike Broderick Plan Of Treatment No Information Progress Notes * Raina PAULDOB: [birth year] (59 yo F)Acc No.[id number]:06/10/2024 Progress Notes Patient: Raina HERNANDEZ Provider: Kike Broderick M.D. :1965 A ge:58 Y S ex:Female Date:06/10/2024 Address:[address] [id number] Pcp:Chantell Manzano Subjective: * Chief Complaints: * 1 . Follow Up on BP. * Medical History: Objective: * Vitals: Assessment: Plan: * Treatment: * Images: Billing Information: * Visit Code: * Procedure Codes: * Electronic signature of Kike Broderick MD on 01/03/2025 at 01:18 PM EDT Sign off status: Pending * Provider: Kike Broderick M.D. Date: 0 06/10/2024 Generated for Printi ng/Faxing/eTransmitting on: 1 01:18 PM EDT
--- OUTSIDE RECORDS SUMMARY | 2024-12-01 12:45 | XMS_ITS ---
Author Organization [facility] Address [address] [facility] 36 [facility] [address] [place] [phone] Care Team Providers Care It Network Engineer Name Role Phone Chantell Manzano Primary Care Provider Vanessa Martinez Unavailable [phone] Allergies Allergen (clinical drug ingredient) Drug/Non Drug Allergy documented on EMR Reaction Allergy Type Onset Date Status lisinopril Lisinopril cough Drug Allergy Activ e Lortab severe itching Drug Allergy Ac tive acetaminophen / oxycodone Percocet Unknown Drug Allergy Active REASON FOR VISIT Check Up to Discuss Meds Medications Medication SIG (Take, Route, Frequency, Duration) Notes Start Date End Date Status Rosuvastatin Calcium 5 MG 1 tablet Orally Once a day; Duration: 90 days Active hydrOXYzine HCl 25 MG 1 tab(s) Orally 4 times a day, prn Active Omeprazole 40 mg 1 capsule at bedtime orally daily; Duration: 90 days Active amLODIPine Besylate 10 MG 1 tablet Orally Once a day; Duration: 30 days 12/01/2024 Active Metoprolol Succinate ER 100 MG 1 tablet Orally Once a day; Duration: 30 days 12/01/2024 Active Mounjaro 15 MG/0.5ML 15 mg Subcutaneous once a week 12/01/2024 Active Metoprolol Succinate ER 50 MG 1 tab(s) orally once a day; Duration: 90 days Active amLODIPine Besylate 5 mg 1 tablet orally once a day; Duration: 90 days Active Mounjaro 12.5 MG/0.5ML 12.5 mg Subcutane ous once a week; Duration: 28 days 09/23/2024 Active CPAP machine and supplies - as directed as directed Settings: Auto PAP 6/16 cm 01/23/2024 Active CPAP machine and supplies - as directed as directed 01/19/2024 Active Vital Signs Weight 184.6 lbs 12/01/2024 Blood pressure systolic 160 mm Hg 12/02/19 25 Blood pressure diastolic 90 mm Hg 025 Heart Rate 79 /min 12/01/2024 Height 63 in 12/01/2024 BMI 32.7 kg/m2 12/01/2024 Encounters Encounter Location Date Provider Diagnosis [facility] [address], [place] [id number] 12/01/2024 Vanessa Martinez Essential hypertensi on I10 ; Mixed hyperlipidemia E78.2 ; Type 2 diabetes mellitus without complication, without long-term current use of insulin E11.9 ; Stage 2 moderate COPD by GOLD classification J44.9 ; Depression with anxiety F41.8 ; Chronic GERD K21.9 and Anxiety F41.9 Assessments Encounter Date Diagnosis (ICD Code) Assessment Notes Treatment Notes Treatment Clinical Notes Section Notes 12/01/2024 Essential hypertension (ICD-10 - I10) Fax labs 12/01/2024 Mixed hyperlipidemia (ICD-10 - E78.2) 12/01/2024 Type 2 diabetes mellitus without complication, without long-term current use of insulin (ICD-10 - E11.9) 12/01/2024 Stage 2 moderate COPD by GOLD classification (ICD-10 - J44.9) 12/01/2024 Depression with anxiety (ICD-10 - F41.8) 12/01/2024 Chronic GERD (ICD-10 - K21.9) 12/01/2024 Anxiety (ICD-10 - F41.9) Plan Of Treatment Medication Medication Name Sig Start Date Stop Date Notes Rosuvastatin Calcium 5 MG 1 tablet Orall y Once a day; Duration: 90 days hydrOXYzine HCl 25 MG 1 tab(s) Orally 4 times a day, prn Omeprazole 40 mg 1 capsule at bedtime orally daily; Duration: 90 days amLODIPine Besylate 10 MG 1 tablet Orall y Once a day; Duration: 30 days 12/01/2024 Metoprolol Succinate ER 100 MG 1 tablet Orally Once a day; Duration: 30 days 12/01/2024 Mounjaro 15 MG/0.5ML 15 mg Subcutaneous once a week 12/01/2024 Treatment Notes Assessment Notes Essential hypertension Fax labs Pending Test Test Name Order Date H-TSH 12/01/2024 H-CBC 12/01/2024 H-Lipid Panel 12/01/2024 H-CMP 12/01/2024 H-Glycohemoglobin A1C 12/01/2024 Next Appt Details Follow Up: via phone to repo rt test results, Reason: Progress Notes * Raina PAULDOB: [birth year] (59 yo F)Acc No.[id number]:12/01/2024 Progress Notes Patient: Raina HERNANDEZ Provider: MELISSA Sutherland :1965 A ge:59 Y S ex:Female Date:12/01/2024 Address:[address] [place] [address] [address], [id number] Pcp:Chantell Manzano Subjective: * Chief Complaints: * 1 . Check Up to Discuss Meds. * HPI: H PI: Patient is here today for glenna dobbs and discuss meds. Pt states she is having hot flashes again. Pt states it has been going on for a month now. She has been out of her BP medications for a month. She does not want to take the losartan because it causes a cough.. * ROS: D ERMATOLOGY: no R agustina. [...] detector use: no. Marital Status: . 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 Past smoking status: yes, Smoking status: Patient does smoke, Packs per day: 1, Since age of: 18. * Medications: T aking CPAP machine and supplies - - as directed as directed , Taking CPAP machine and supplies - - as directed as directed , Notes to Pharmacist: Settings: Auto PAP 6/16 cm, Taking Omeprazole 40 mg Capsule Delayed Release 1 capsule at bedtime orally daily , Taking Mounjaro 12.5 MG/0.5ML Solution Auto-injector 12.5 mg Subcutaneous once a week , Taking amLODIPine Besylate 5 mg Tablet 1 tablet orally once a day , Taking hydrOXYzine HCl 25 MG Tablet 1 tab(s) Orally 4 times a day, prn , Taking Rosuvastatin Calcium 5 MG Tablet 1 tablet Orally Once a day , Taking Metoprolol Succinate ER 50 MG Tablet Extended Release 24 Hour 1 tab(s) orally once a day , Discontinued Lexapro 10 MG Tablet 1 tablet Orally Once a day , Discontinued Losartan Potassium-HCTZ 100- 25 MG Tablet 1 tab(s) orally once a day , Discontinued Meloxicam 15 MG Tablet 1 tablet Orally Once a day , Medication List reviewed and reconciled with the patient * Allergies: L ortab: severe itching, Percocet, Lisinopril: cough. Objective: * Vitals: W t: 184.6, Temp: 98.4, BP: 160/90, HR: 79, Nurse: pe, Ht: 63, Repeat BP: 170/88, BMI:32.7. * Examination: G eneral Examination: General Appearance: N AD. H EENT: u nremarkable.?Oral cavity: n o lesions, mucosa moist and WNL, no erythema. N akhil: s upple, no lymphadenopathy. C hest: n ormal shape and expansion. H eart: R SR. L ungs: c lear to auscultation. A bdomen: b owel sounds present, soft and nontender, no organomegaly or masses. N eurologic Exam: I ntact, gait normal. S kin: n ormal, no rash. P eripheral pulses: n ormal (2+) bilaterally. E xtremities: n o leg edema. ? Assessment: * Assessment: 1. E ssential hypertension - I10 (Primary) 2 . M ixed hyperlipidemia - E78.2 3 . T ype 2 diabetes mellitus without complication, without long-term current use of insulin - E11.9 4 . S tage 2 moderate COPD by GOLD classification - J44.9 5. D epression with anxiety - F41.8 6 . C hronic GERD - K21.9 7 . A nxiety - F41.9 Plan: * Treatment: 2. M ixed hyperlipidemia Refill Rosuvastatin Calcium Tablet, 5 MG, 1 tablet, Orally, Once a day, 90 days, 90 Tablet, Refills 1. L AB: H-Lipid Panel 3. T ype 2 diabetes mellitus without complication, without long-term current use of insulin Start Mounjaro Solution Auto-injector, 15 MG/0.5ML, 15 mg, Subcutaneous, once a week, 4, Refills 5.? L AB: H-Glycohemoglobin A1C 4. C hronic GERD Refill Omeprazole Capsule Delayed Release, 40 mg, 1 capsule at bedtime, orally, daily, 90 days, 90 Capsule, Refills 1. 5. A nxiety Refill hydrOXYzine HCl Tablet, 25 MG, 1 tab(s), Orally, 4 times a day, prn, 60, Refills 1. ? * Follow Up: v ia phone to report test results * Images: Billing Information: * Visit Code: 03462 Office Visit, Est Pt., Level 4. * Procedure Codes: * Electronic signature of MELISSA Gabriel on 01/03/2025 at 01:18 PM EDT Sign off status: Pending * Provider: MELISSA Sutherland Date: 0 12/01/2024 Generated for Mila lebron/Jr/eTangel luissmitting on: 1 01:18 PM EDT History and Physical Notes * HPI (History of Present Illness) Category Sub-Category Detail Notes Category Not es HPI Patient is here today for checku p and discuss meds. Pt states she is having hot flashes again. Pt states it has been going on for a month now. She has been out of her BP medications for a month. She does not want to take the losartan because it causes a cough. Examination Category Sub-Category Detail Notes Category Not es General Examination HEENT: unremarkable Heart: RSR Lungs: clear to auscultatio n Abdomen: bowel sounds present , soft and nontender, no organomegaly or masses Extremities: no leg edema General Appearance: NAD Skin: normal, no rash Neurologic Exam: Intact, gait normal Neck: supple, no lymphaden opathy Oral cavity: no lesions, mucosa m oist and WNL, no erythema Peripheral pulses: normal (2+) bilatera lly Chest: normal shape and exp ansion
--- OUTSIDE RECORDS SUMMARY | 2024-12-13 07:23 | XMS_ITS ---
Author Organization [facility] Address [address] [facility] 36 [facility] [address] [place] [phone] Care Team Providers Care Ginner Helper Name Role Phone Chantell Manzano Primary Care Provider [phone] REASON FOR VISIT due meng, col, dexa, LDCT Encounters Encounter Location Date Provider Diagnosis [facility] [address] [place] [phone] 12/13/2024 Chantell Manzano Breast cancer screen ing [...] Raina PAUL AnamariaDOB: [birth year] (59 yo F)Acc No.[id number]:12/13/2024 Patient: Raina HERNANDEZ :1965 A ge:59 Y S ex:Female Address:[address] [place] [address] Subjective: * Chief Complaints: * d ue [...] 12/13/2024 12:0 6:41 PM EDT >sne to [facility] for referral to [facility] to be scheduled with Mammogram AFTER 12/23/24 3.?Encounter for screening for lung cancer?Imaging: CT Scan : Chest, low dose* Gabriela Her 12/13/2024 12:0 8:34 PM EDT > sent to [facility] for referal to [facility] * Procedure Codes: * true * Date: Generated for Mila lebron/Jr/Bryonitting on: 1 01:17 PM EDT
--- OUTSIDE RECORDS SUMMARY | 2024-12-22 12:30 | XMS_ITS ---
Author Organization [facility] Address [address] [facility] [address] [facility] [address] [place] [phone] Care Team Providers Care Traffic Sign Supervisor Name Role Phone Chantell Manzano Primary Care Provider Vanessa Martinez Unavailable [phone] Allergies Allergen (clinical drug ingredient) Drug/Non Drug Allergy documented on EMR Reaction Allergy Type Onset Date Status lisinopril Lisinopril cough Drug Allergy Activ e Lortab severe itching Drug Allergy Ac tive acetaminophen / oxycodone Percocet Unknown Drug Allergy Active REASON FOR VISIT 3 week f/u Medications Medication SIG (Take, Route, Frequency, Duration) Notes Start Date End Date Status Omeprazole 40 mg 1 capsule at bedtime orally daily; Duration: 90 days Active amLODIPine Besylate 10 MG 1 tablet Orally Once a day; Duration: 30 days 12/01/2024 Active Metoprolol Succinate ER 100 MG 1 tablet Orally Once a day; Duration: 30 days 12/01/2024 Active Rosuvastatin Calcium 5 MG 1 tablet Orally Once a day; Duration: 90 days Active hydrOXYzine HCl 25 MG 1 tab(s) Orally 4 times a day, prn Active Mounjaro 15 MG/0.5ML 15 mg Subcutaneous once a week 12/01/2024 Active CPAP machine and supplies - as directed as directed Settings: Auto PAP 6/16 cm 01/23/2024 Active Meloxicam 15 MG 1 tablet Orally Once a day Active Waldemar Low Dose 81 MG 1 tablet Orally Onc e a day Active Vital Signs Weight 179.8 lbs 12/22/2024 Blood pressure systolic 148 mm Hg 12/23/19 25 Blood pressure diastolic 80 mm Hg 025 Heart Rate 77 /min 12/22/2024 Height 63 in 12/22/2024 BMI 31.85 kg/m2 12/22/2024 Encounters Encounter Location Date Provider Diagnosis [facility] [address] [place] [id number] 12/22/2024 Vanessa Martinez Essential hypertensi on I10 Assessments Encounter Date Diagnosis (ICD Code) Assessment Notes Treatment Notes Treatment Clinical Notes Section Notes 12/22/2024 Essential hypertension (ICD-10 - I10) BP has improved. WIll continue current doses of medications. Plan Of Treatment Treatment Notes Assessment Notes Essential hypertension BP has improved. WIll continue current doses of medications. Next Appt Details Follow Up: via phone to repo rt progress, Reason: Progress Notes * Raian PAUL AnamariaDOB: [birth year] (59 yo F)Acc No.[id number]:12/22/2024 Patient: Raina HERNANDEZ Provider: MELISSA Sutherland :1965 A ge:59 Y S ex:Female Date:12/22/2024 Address:[address] [place] [address] [address] [place], [id number] Pcp:Chantell Manzano Subjective: * Chief Complaints: * 1 . 3 week f/u. * HPI: H PI: Patient is here today for 3 weeks f/u meds was change last visit. Pt states her BP been up and down since then. * ROS: D ERMATOLOGY: no R agustina. n o H loyda. G ASTROENTEROLOGY: no N ausea. n o V omiting. n o D iarrhea.? U ROLOGY: no B lood in urine. n o F requent urination. ? * Medical History: T obacco Use, Hypertension, [...] use: no. Marital Status: . 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 Past smoking status: yes, Smoking status: Patient does smoke, Packs per day: 1, Since age of: 18. * Medications: T aking Waldemar Low Dose 81 MG Tablet Delayed Release 1 tablet Orally Once a day , Taking Meloxicam 15 MG Tablet 1 tablet Orally Once a day , Taking CPAP machine and supplies - - as directed as directed , Notes to Pharmacist: Settings: Auto PAP 6/16 cm, Taking Mounjaro 15 MG/0.5ML Solution Auto-injector 15 mg Subcutaneous once a week , Taking Metoprolol Succinate ER 100 MG Tablet Extended Release 24 Hour 1 tablet Orally Once a day , Taking amLODIPine Besylate 10 MG Tablet 1 tablet Orally Once a day , Taking Omeprazole 40 mg Capsule Delayed Release 1 capsule at bedtime orally daily , Taking hydrOXYzine HCl 25 MG Tablet 1 tab(s) Orally 4 times a day, prn , Taking Rosuvastatin Calcium 5 MG Tablet 1 tablet Orally Once a day , Discontinued CPAP machine and supplies - - as directed as directed , Discontinued Mounjaro 12.5 MG/0.5ML Solution Auto-injector 12.5 mg Subcutaneous once a week , Discontinued amLODIPine Besylate 5 mg Tablet 1 tablet orally once a day , Discontinued Metoprolol Succinate ER 50 MG Tablet Extended Release 24 Hour 1 tab(s) orally once a day , Medication List reviewed and reconciled with the patient * Allergies: L ortab: severe itching, Percocet, Lisinopril: cough. Objective: * Vitals: W t: 179.8, Temp: 97.9, BP: 148/80, HR: 77, Nurse: pe, Ht: 63, Repeat BP: 130/84, BMI:31.85. * Examination: G eneral Examination: General Appearance: N AD. C hest: n ormal shape and expansion. H eart: R SR. L ungs: c lear to auscultation. Assessment: * Assessment: 1. E ssential hypertension - I10 (Primary) Plan: * Treatment: * Follow Up: v ia phone to report progress * Images: Billing Information: * Visit Code: 19136 Office Visit, Est Pt., Level 3. * Procedure Codes: * Electronic signature of MELISSA Gabriel on 01/03/2025 at 01:18 PM EDT Sign off status: Pending * Provider: MELISSA Sutherland Date: Generated for Mila lebron/Jr/eTransmitting on: 01:18 PM EDT History and Physical Notes * HPI (History of Present Illness) Category Sub-Category Detail Notes Category Not es HPI Patient is here today for 3 week s f/u meds was change last visit. Pt states her BP been up and down since then Examination Category Sub-Category Detail Notes Category Not es General Examination Heart: RSR Lungs: clear to auscultatio n General Appearance: NAD Chest: normal shape and exp ansion
--- OUTSIDE RECORDS SUMMARY | 2025-01-03 13:18 | XMS_ITS | Patient Health Record ---
Author Organization [facility] Address [address] [facility] [address] [place] [phone] Care Team Providers Care Reliner Name Role Phone Chantell Manzano Primary Care Provider Kike Broderick Unavailable [phone] Fatemeh Younger Unavailable [phone] Vanessa Martinez Unavailable [phone] Allergies Allergen (clinical drug ingredient) Drug/Non Drug Allergy documented on EMR Reaction Allergy Type Onset Date Status lisinopril Lisinopril cough Drug Allergy Activ e Lortab severe itching Drug Allergy Ac tive acetaminophen / oxycodone Percocet Unknown Drug Allergy Active Results Component Value Reference Range Notes H-CBC Reviewed date:09/22/2024 04:01:59 PM Interpretation: Performing Lab: Notes/Report: H-Lipid Panel Reviewed date:09/22/2024 04:02:55 PM Interpretation: Performing Lab: Notes/Report: H-CMP Reviewed date:09/22/2024 04:02:39 PM Interpretation: Performing Lab: Notes/Report: H-Glycohemoglobin A1C Reviewed date:09/22/2024 04:02:24 PM Interpretation: Performing Lab: Notes/Report: Ultrasound : groin, right Reviewed date:05/14/2024 04:30:17 PM Interpretation:right inguinal lymph nodes Performing Lab: Notes/Report: right inguinal lymph nodes X ray : Hip, right Reviewed date:05/14/2024 04:30:39 PM Interpretation:nothing acute Performing Lab: Notes/Report: nothing acute H-CBC Reviewed date:08/05/2024 09:41:09 AM Interpretation:hgb 16.5, hct 48.8 Performing Lab: Notes/Report: WBC 7.2 4.8-10.8 K/mm3 RBC 5.31 4.20-5.40 M/mm3 HGB 16.5 12.2-16.2 g/dL HCT 48.8 37.0-47.0 % MCV 91.9 81-99 fl MCH 31.1 27.0-31.2 pg MCHC 33.8 31.8-35.4 g/dL RDW-SD 44.3 RDW 13.1 11.5-17.5 % PLT 248 142-424 K/mm3 MPV 10.2 7.4-10.4 fl NE% 54.1 37.0-80.0 % LY% 33.1 10-50 % MO% 8.0 1.7-9.3 % EO% 3.5 0.1-12.0 % BA% 1.0 0.1-2.0 % NRBC% 0 NE# 3.9 1.8-7.8 K/mm3 LY# 2.4 0.7-4.5 K/mm3 MO# 0.6 0.1-1.0 K/mm3 EO# 0.3 0.0-0.4 Kmm3 BA# 0.1 0-0.2 K/mm3 NRBC# 0 H-Lipid Panel Reviewed date:08/05/2024 09:41:09 AM Interpretation:Trigs 155, Chol 127, LDL 64.19, HDL 35, CHLHDL 3.6 Performing Lab: Notes/Report: Patient Fasting? Y TRIG 155 30-150 mg/dl CHOL 127 140-200 mg/dl DLDL 64.19 100-129 mg/dL VLDL 31 0-40 mg/dL HDL 35 40-60 mg/dl CHLHDL 3.6 1-3.5 H-CMP Reviewed date:08/05/2024 09:41:09 AM Interpretation:BUN 19, Glu 105, A/G 2.0 Performing Lab: Notes/Report: NA 140 136-145 mmol/L K 4.3 3.5-5.1 mmoL/L CL 104 98-107 mmol/L CO2 29 22.0-30.0 mmol/L GAP 11.3 5-15 mEq/L BUN 19 7-17 mg/dl CREATT 0.90 0.52-1.04 mg/dl GFRAA 78 >60 ML/MIN EGFR 64 >60 ml/min GLU 105 74-100 mg/dl CA 9.4 8.4-10.2 mg/dl BILIT 0.4 0.2-1.3 mg/dl AST 24 14-36 U/L ALT 21 12-78 U/L TP 6.7 6.3-8.2 g/dl ALB 4.5 3.5-5.0 g/dl GLOB 2.2 1.3-3.2 g/dL AGRATIO 2.0 1.1-1.8 ALP 53 38-126 U/L H-Glycohemoglobin A1C Reviewed date:08/05/2024 09:41:09 AM Interpretation:6.1 Performing Lab: Notes/Report: HGBA1C 6.1 4.0-6.0 % < 6% Non-Diabetic Level < 7% Controlled Diabetic Level > 8% Poorly Controlled Diabetic Level Medications Medication SIG (Take, Route, Frequency, Duration) Notes Start Date End Date Status Omeprazole 40 mg 1 capsule at bedtime orally daily; Duration: 90 days Active hydrOXYzine HCl 25 MG 1 tab(s) Orally 4 times a day, prn Active amLODIPine Besylate 10 MG 1 tablet Orally Once a day; Duration: 30 days 12/01/2024 Active Metoprolol Succinate ER 100 MG 1 tablet Orally Once a day; Duration: 30 days Active Mounjaro 15 MG/0.5ML 15 mg Subcutaneous once a week 12/01/2024 Active CPAP machine and supplies - as directed as directed Settings: Auto PAP 6/16 cm 01/23/2024 Active Meloxicam 15 MG 1 tablet Orally Once a day Active Rosuvastatin Calcium 5 MG 1 tablet Orally Once a day; Duration: 90 days Active Waldemar Low Dose 81 MG 1 tablet Orally Onc e a day Active Immunizations Vaccine Route Administration Date Status Comme nts Tetanus Tdap-Adacel (over 7yrs) IM Intramuscular 07/06/2018 Administered PNEUMOVAX 23 VACCINE IM Intramuscular 07/06/2018 Administe red COVID 19 Moderna Unknown 03/31/2020 Administered COVID 19 Moderna Unknown 05/02/2020 Administered Problems Problem Type SNOMED Code ICD Code Onset Dates Problem Status W/U Status Risk Notes Problem Hypokalemia (17173923) Hypokalemia (E87.6) Active confirmed Problem Essential hypertension (44329622) Essential hypertension (I10) Active confirmed Problem Anxiety (50685027) Anxiety (F41.9) Active confi rmed Problem Obstructive sleep apnea (78784926) Obstructive sleep apnea (G47.33) Active confirmed Problem Mixed anxiety and depressive disorder (656839913) Depression with anxiety (F41.8) Active confirmed Problem Obese class I (175028147068065) BMI 33.0-33.9,adult (Z68.33) Active confirmed Problem Mixed hyperlipidemia (235116478) Mixed hyperlipidemia (E78.2) Active confirmed Problem Simple chronic bronchitis (97960860) Simple chronic bronchitis (J41.0) Active confirmed Problem Tobacco dependence (16143273) Tobacco dependence (F17.200) Active confirmed Problem Gastroesophageal reflux disease (disorder) (280365324) Chronic GERD (K21.9) Active confirmed Problem Body mass index 30.0 0 to 34.99 (047912216259775) BMI 34.0-34.9,adult (Z68.34) Active confirmed Problem Essential hypertension (89069681) Essential hypertension, hypertension with unspecified goal (I10) Active confirmed Problem Type II diabetes mellitus without complication (273149446) Type 2 diabetes mellitus without complication, without long-term current use of insulin (E11.9) Active confirmed Problem Obese class I (finding) (551403671267949) Obesity (BMI 30.0-34.9) (E66.9) Active confirmed Problem Allergic rhinitis (42160676) Seasonal allergic rhinitis due to other allergic trigger (J30.89) Active confirmed Problem Pure hypercholesterolemia (982915009) Pure hypercholesterolemia (E78.00) Active confirmed Problem Tobacco use (191732773) Tobacco use disorder (F17.200) Active confirmed Problem Sleep apnea (90960246) Severe sleep apnea (G47.30) Active confirmed Problem Paresthesia of finge r (150175951) Paresthesia of finger (R20.2) Active confirmed Problem Chronic obstructive pulmonary disease (77388480) Stage 2 moderate COPD by GOLD classification (J44.9) Active confirmed Problem Obese class I (finding) (470796914295774) Obesity, Class I, BMI 30-34.9 (E66.9) Active confirmed Problem Gastroesophageal reflux disease (695617349) Gastroesophageal reflux disease, unspecified whether esophagitis present (K21.9) Active confirmed Problem Primary hypertension (74546705) Primary hypertension (I10) Active confirmed Vital Signs Heart Rate 77 /min 12/22/2024 Blood pressure diastolic 80 mm Hg 12/22/2024 Height 63 in 12/22/2024 Blood pressure systolic 148 mm Hg 12/22/2024 Weight 179.8 lbs 12/22/2024 BMI 31.85 kg/m2 12/22/2024 Encounters Encounter Location Date Provider [facility] [address] [facility] [address] [place] [id number] 05/10/2024 Fatemeh Younger Groin pain, right R10.31 and Hip pain M25.559 [facility] [address] [facility] [address] [place] [id number] 05/14/2024 Vanessa Crowdanay Groin pain, right R1 0.31 ; Trochanteric bursitis of right hip M70.61 and Type 2 diabetes mellitus without complication, without long-term current use of insulin E11.9 [facility] [address] [facility] [address] [place] [id number] 05/18/2024 R Dl Broderick [facility] [address] [facility] [address] [place], [place] [id number] 12/01/2024 Vanessa Juan Essential hypertensi on I10 ; Mixed hyperlipidemia E78.2 ; Type 2 diabetes mellitus without complication, without long-term current use of insulin E11.9 ; Stage 2 moderate COPD by GOLD classification J44.9 ; Depression with anxiety F41.8 ; Chronic GERD K21.9 and Anxiety F41.9 [facility] [address] [facility] [address] [place], [place] [id number] 12/22/2024 Vanessa Juan Essential hypertensi on I10 [facility] [address] [facility] [address] [place], [place] [id number] 01/19/2024 Vanessa Martinez Obstructive sleep ap leonid G47.33 [facility] [address] [facility] [address] [place], [place] [id number] 01/23/2024 Chantell Manzano Severe sleep apnea G 47.30 [facility] [address] [facility] [address] [place], [place] [id number] 02/11/2024 Chantell Manzano [facility] [address] [place], [place] [id number] 03/12/2024 Chantell Manzano [facility] [address] [place], [place] [id number] 06/30/2024 Vanessa Martinez Mixed hyperlipidemia E78.2 ; Pure hypercholesterolemia E78.00 ; Type 2 diabetes mellitus without complication, without long-term current use of insulin E11.9 and Primary hypertension I10 [facility] [address] [place], [place] [id number] 07/29/2024 Chantell Manzano [facility] [address] [place], [place] [id number] 08/05/2024 Vanessa Martinez [facility] [address] [place], [place] [id number] 09/08/2024 Chantell Manzano [facility] [address] [place], [place] [id number] 09/22/2024 Vanessa Martinez [facility] [address] [place], [place] [id number] 10/21/2024 Chantell Manzano Anxiety F41.9 and Trochanteric bursitis of right hip M70.61 [facility] [address] [place], [place] [id number] 12/02/2024 Chantell Manzano [facility] [address] [place], [place] [id number] 12/13/2024 Chantell Manzano Breast cancer screen ing Z12.31 ; Encounter for screening for osteoporosis Z13.820 and Encounter for screening for lung cancer Z12.2 Assessments Encounter Date Diagnosis (ICD Code) Assessment Notes Treatment Notes Treatment Clinical Notes Section Notes 01/19/2024 Obstructive sleep ap leonid (ICD-10 - G47.33) 01/23/2024 Severe sleep apnea (ICD-10 - G47.30) 05/10/2024 Hip pain (ICD-10 - M25.559) 05/10/2024 Groin pain, right (ICD-10 - R10.31) no lifting/pushin g/pulling; heat application prn 05/14/2024 Trochanteric bursiti s of right hip (ICD-10 - M70.61) Improved on her 's meloxicam. Will send steroids and meloxicam for her to continue. 05/14/2024 Groin pain, right (ICD-10 - R10.31) U/S showed a slightly enlarged lymph node but it was felt to be benign. Pain has now resolved. 06/30/2024 Mixed hyperlipidemia (ICD-10 - E78.2) 10/21/2024 Anxiety (ICD-10 - F41.9) 12/01/2024 Essential hypertensi on (ICD-10 - I10) Fax labs 12/01/2024 Mixed hyperlipidemia (ICD-10 - E78.2) 12/13/2024 Encounter for screen ing for osteoporosis (ICD-10 - Z13.820) 12/13/2024 Breast cancer screen ing (ICD-10 - Z12.31) 12/22/2024 Essential hypertensi on (ICD-10 - I10) BP has improved. WIll continue current doses of medications. 12/13/2024 Encounter for screen ing for lung cancer (ICD-10 - Z12.2) 12/01/2024 Type 2 diabetes mellitus without complication, without long-term current use of insulin (ICD-10 - E11.9) 10/21/2024 Trochanteric bursiti s of right hip (ICD-10 - M70.61) 06/30/2024 Pure hypercholesterolemia (ICD-10 - E78.00) 05/14/2024 Type 2 diabetes mellitus without complication, without long-term current use of insulin (ICD-10 - E11.9) Pt would like to increase mounjaro dose. Will recheck labs in May. 06/30/2024 Type 2 diabetes mellitus without complication, without long-term current use of insulin (ICD-10 - E11.9) 12/01/2024 Stage 2 moderate TRACER CLERK D by GOLD classification (ICD-10 - J44.9) 06/30/2024 Primary hypertension (ICD-10 - I10) 12/01/2024 Depression with anxi ety (ICD-10 - F41.8) 12/01/2024 Chronic GERD (ICD-10 - K21.9) 12/01/2024 Anxiety (ICD-10 - F41.9) Plan Of Treatment Pending Test Test Name Order Date Bone density 12/13/2024 colonoscopy 12/10/2023 Mammogram 12/13/2024 EGD 12/10/2023 CT Scan : Chest, low dose 12/13/2024 H-TSH 12/01/2024 H-CBC 12/01/2024 H-Lipid Panel 12/01/2024 H-CMP 12/01/2024 H-Glycohemoglobin A1C 12/01/2024 Insurance Providers Payer Name Payer Address Payer Phone Subscriber Number Group Number Insured Name Patient Relationship to Insured Coverage Start Date Coverage End Date [facility] [id number] [place] [address] [id number] Raina Dhaliwal Self - patient is the insured Medical (General) History Medical History History ICD Code Tobacco Use Hypertension Anxiety Moderna Covid vaccine x2 Mar 2020 Surgical History Surgery Date(Month/Year) Essure placement - 01/2008 Ablasion - 02/2008 ablasion- Dr. Boyd 03-05-10 total hysterectomy 03-07-12
--- NOTE | 2025-01-03 13:19 | MM_ITS ---
PROCEDURE INFORMATION: Exam: MG Bilateral Screening 3D Mammography Exam date and time: 01/03/2025 1:40 PM Age: 59 years old Clinical indication: Screening examination TECHNIQUE: Imaging protocol: Bilateral Screening tomosynthesis and 2D mammography including computer-aided detection (CAD) when performed. COMPARISON: MG MM DIG SCREENING MAMM BI W/CAD 12/24/2023 1:16 PM FINDINGS: MAMMOGRAPHY: Breast composition: There are scattered areas of fibroglandular density. Mass: No suspicious masses. Architectural distortion: None. Calcifications: No suspicious calcifications. Asymmetric density: None. Skin thickening: None. Axillary adenopathy: None. IMPRESSION: No mammographic evidence of malignancy. Annual screening is recommended unless otherwise clinically indicated. ASSESSMENT: BI-RADS Category 1: Negative.
--- NOTE | 2025-01-03 13:19 | XR_ITS ---
FINAL REPORT TECHNIQUE: Bone densitometry calculations of the lumbar spine and bilateral hips were obtained. CLINICAL HISTORY: screening COMPARISON: None FINDINGS: Using L1-4, the bone mineral density of the spine is 1.047 g/cm2, corresponding to T-score of 0.0 and a Z score of 1.4. This is within the range of normal. Using the left hip, the bone mineral density of the femoral neck is 0.794 g/cm2, corresponding to a T-score of -0.5 and a Z-score of 0.8. This is within the range of normal Using the right hip, the bone mineral density of the femoral neck is 0.823 g/cm?, corresponding to a T-score of -0.2 and a Z-score of 1.1. This is within the range of normal. NOTE: T-score: Standard deviation compared with peak bone mass of young adult mean. *Following the recommendations of the International Society of Bone densitometry, classification of hip BMD is based on the lower of two T-scores; total hip or femoral neck. IMPRESSION: 1. Bone mineral density of the lumbar spine within the range of normal. 2. Bone mineral density of the bilateral femoral necks within the range of normal. Reviewed, Interpreted and Dictated by Aliyah Luke MD Transcribed by Sanjuana Lund Authenticated and [facility]
--- NOTE | 2025-01-03 13:19 | CT_ITS ---
FINAL REPORT TECHNIQUE: Thin section axial images were obtained through the lungs using a low-dose technique per lung cancer screening protocol. Reconstruction images were obtained using the axial data. Exam was performed using dose reduction technique. CLINICAL HISTORY: SCREENING CURRENT SMOKER 1PPD X40+ YEARS COMPARISON: 12/24/2023 FINDINGS: CTDLvol: 2.90 DLP: 96.38 Current smoker 40 pack year history Lungs: No acute pulmonary abnormality. No suspicious nodules. There is mild emphysema and evidence of prior granulomatous disease. Lymph nodes: There is a stable, mildly enlarged precarinal lymph node. Otherwise, no lymphadenopathy Mediastinum: Heart size is normal. Pleura/pericardium: No pleural or pericardial effusion. Other: No acute abnormality in the upper abdomen. IMPRESSION: No suspicious pulmonary nodule or mass. Lung RADS: 1 Recommendation: 1 year follow-up. Reviewed, Interpreted and Dictated by Aliyah Luke MD Transcribed by Carmen Bowen Authenticated and [facility]
== END 2025-01-03 23:59 | disposition home or self-care (01) ==
LOC: RAD 13:16
PROVIDERS: PCP Physician Assistant; Visit Provider Family Medicine
DX: Z12.31 Encounter for screening mammogram for malignant neoplasm of breast (principal); R92.323 Mammographic fibroglandular density, bilateral breasts; Z13.820 Encounter for screening for osteoporosis; Z12.2 Encounter for screening for malignant neoplasm of respiratory organs; F17.210 Nicotine dependence, cigarettes, uncomplicated
CPT/HCPCS: 71271; 77063; 77067; 77080

== ENCOUNTER 2025-01-07 08:53 | Outpatient (CLI) | payer OTHER, SELFPAY ==
--- OUTSIDE RECORDS SUMMARY | 2024-05-10 10:15 | XMS_ITS ---
[facility] Address [address] [facility] [address] [place] [id number] Care Team Providers Care [place] Name Role Phone Chantell Manzano Primary Care Provider Fatemeh Younger Unavailable [phone] Allergies Allergen (clinical drug ingredient) Drug/Non Drug Allergy documented on EMR Reaction Allergy Type Onset Date Status lisinopril Lisinopril cough Drug Allergy Activ e Lortab severe itching Drug Allergy Ac tive acetaminophen / oxycodone Percocet Unknown Drug Allergy Active Results Component Value Reference Range Notes X ray : Hip, right Reviewed date:05/14/2024 04:30:39 PM Interpretation:nothing acute Performing Lab: Notes/Report: nothing acute Ultrasound : groin, right Reviewed date:05/14/2024 04:30:17 PM Interpretation:right inguinal lymph nodes Performing Lab: Notes/Report: right inguinal lymph nodes REASON FOR VISIT Possible Sciatica Medications Medication SIG (Take, Route, Frequency, Duration) Notes Start Date End Date Status Mounjaro 2.5 MG/0.5ML INJECT 1 PREFILLED SYRINGE SUBCUTANEOUSLY ONCE WEEKLY Active CPAP machine and supplies - as directed as directed 01/19/2024 Acti ve CPAP machine and supplies - as directed as directed Settings: Auto PAP 6/16 cm 01/23/2024 Active hydrOXYzine HCl 25 MG 1 tab(s) Orally 4 times a day, prn Active Omeprazole 40 MG TAKE 1 CAPSULE BY MO UTH AT BEDTIME Active Lexapro 10 MG 1 tablet Orally Once a day; Duration: 30 day(s) Active Rosuvastatin Calcium 5 MG TAKE ONE TABLET BY MOUTH ONCE A DAY; Duration: 30 days Active Losartan Potassium-HCTZ 100-25 MG 1 tab(s) orally once a day; Duration: 30 days Active Metoprolol Succinate ER 50 MG 1 tab(s) orally once a day; Duration: 30 days Active amLODIPine Besylate 5 MG TAKE ONE TABLET BY MOUTH ONCE A DAY Active Vital Signs Blood pressure systolic 150 mm Hg 05/10/19 25 Blood pressure diastolic 90 mm Hg 025 Heart Rate 92 /min 05/10/2024 Height 63 in 05/10/2024 Weight 200.4 lbs 05/10/2024 BMI 35.50 kg/m2 05/10/2024 Encounters Encounter Location Date Provider Diagnosis [facility] [address] [facility] [address] [place] [id number] 05/10/2024 Fatemeh Younger Groin pain, right R10.31 and Hip pain M25.559 Assessments Encounter Date Diagnosis (ICD Code) Assessment Notes Treatment Notes Treatment Clinical Notes Section Notes 05/10/2024 Groin pain, right (ICD-10 - R10.31) no lifting/pushing/ pulling; heat application prn 05/10/2024 Hip pain (ICD-10 - M25.559) Plan Of Treatment Treatment Notes Assessment Notes Groin pain, right no lifting/pushing/p ulling; heat application prn Next Appt Details Follow Up: keep 05/14/2024 ap pt, Reason: Progress Notes * Raina PAULDOB: [birth year] (59 yo F)Acc No.[id number]:05/10/2024 Progress Notes Patient: Raina HERNANDEZ Provider: MEKHI Shine :1965 A ge:58 Y S ex:Female Date:05/10/2024 Address:[address] [place] [address] OF [address] [place], [id number] Pcp:Chantell Manzano Subjective: * Chief Complaints: * 1 . Possible Sciatica. * HPI: H ip/Thigh: 58 year old female presents with c/o hip pain P t is here today for c/o possible sciatica. Pt sts the pain starts at her rt hip and goes down her groin area into her thigh and sts the rt side of her rt leg goes numb. Pt sts this is week 3. Pt sts she is unsure if it is sciatica or something else. c/o tingling/numbness. c/o Thigh. Denies : Fall. heat does not help; standing/walking makes it worse; voiding QS and bowels moving as usual. * ROS: D ERMATOLOGY: no R agustina. n o H loyda. G ASTROENTEROLOGY: no N ausea. n o V omiting. n o D iarrhea.? U ROLOGY: no D ifficulty urinating. n o B lood in urine. * Medical History: T obacco Use, Hypertension, Anxiety, Moderna Covid vaccine x2 Mar 2020. * Surgical History: E ssure placement - 01/2008, Ablasion - 02/2008, ablasion- Dr. Boyd 03-05-10, total hysterectomy 03-07-12. * Family History: F ather: . M other: . P aternal Grand Father: . P aternal Grand Mother: . M aternal Grand Father: . M aternal Grand Mother: .?2 son(s) - healthy. . * Social History: C URRENT TOBACCO USE S moking Status: Patient does smoke. H ome smoke detector use: no. Marital Status: . 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 Past smoking status: yes, Smoking status: Patient does smoke, Packs per day: 1, Since age of: 18. * Medications: T aking hydrOXYzine HCl 25 MG Tablet 1 tab(s) Orally 4 times a day, prn , Taking Omeprazole 40 MG Capsule Delayed Release TAKE 1 CAPSULE BY MOUTH AT BEDTIME , Taking CPAP machine and supplies - - as directed as directed , Taking CPAP machine and supplies - - as directed as directed , Notes to Pharmacist: Settings: Auto PAP 6/16 cm, Taking Mounjaro 2.5 MG/0.5ML Solution Auto-injector INJECT 1 PREFILLED SYRINGE SUBCUTANEOUSLY ONCE WEEKLY , Taking Lexapro 10 MG Tablet 1 tablet Orally Once a day , Taking Rosuvastatin Calcium 5 MG Tablet TAKE ONE TABLET BY MOUTH ONCE A DAY , Taking Losartan Potassium-HCTZ 100-25 MG Tablet 1 tab(s) orally once a day , Taking Metoprolol Succinate ER 50 MG Tablet Extended Release 24 Hour 1 tab(s) orally once a day , Taking amLODIPine Besylate 5 MG Tablet TAKE ONE TABLET BY MOUTH ONCE A DAY , Medication List reviewed and reconciled with the patient * Allergies: L ortab: severe itching, Percocet, Lisinopril: cough. Objective: * Vitals: W t:200.4, Temp:98.5, BP:150/90, HR:92, O2 Sat:92% on RA, Nurse:erika, Ht: 63, BMI:35.50. * Examination: G eneral Examination: General Appearance: NAD, appears healthy, alert, pleasant, well nourished and hydrated. H eart: RRR. L ungs: CTAB A&P. A bdomen:? bowel sounds present, soft; mild tenderness in the right groin without palpable mass. ? H ip / Thigh: Hip joint: right. I nspection: no effusion, ecchymosis or deformities. P alpation: mild tenderness over the posterior joint. R anna of motion: pain with extension and lateral movement. G ait: normal. ? Assessment: * Assessment: 1. G roin pain, right - R10.31 (Primary) 2 . H ip pain - M25.559 Plan: * Treatment: Notes: no lifting/pushing/pulling; heat application prn??2.?Hip pain?Imaging: X ray : Hip, right (Performed Date - 05/11/2024)?nothing acute* Fatemeh Younger 05/14/2024 4:30:34 PM > , see office visit note * Follow Up: lisa branham 05/14/2024 appt * Images: Billing Information: * Visit Code: 26692 Office Visit, Est Pt., Level 3. * Procedure Codes: * Electronic signature of Fabi Younger APRN on 01/07/2025 at 08:59 AM EDT Sign off status: Pending * Provider: MEKHI Shine Date: 0 05/10/2024 Generated for Mila lebron/Jr/Parish on: 1 08:59 AM EDT History and Physical Notes * HPI (History of Present Illness) Category Sub-Category Detail Notes Category Not es Hip/Thigh Fall heat does not h elp; standing/walking makes it worse; voiding QS and bowels moving as usual tingling/numbness hip pain Pt is here today for c/o possible sciatica. Pt sts the pain starts at her rt hip and goes down her groin area into her thigh and sts the rt side of her rt leg goes numb. Pt sts this is week 3. Pt sts she is unsure if it is sciatica or something else Thigh Examination Category Sub-Category Detail Notes Category Not es General Examination Heart: RRR Lungs: CTAB A&P Abdomen: bowel sounds present , soft; mild tenderness in the right groin without palpable mass General Appearance: NAD, appears healthy , alert, pleasant, well nourished and hydrated Hip / Thigh Gait: normal Range of motion: pain with extension and lateral movement Hip joint: right Inspection: no effusion, ecchymo sis or deformities Palpation: mild tenderness over the posterior joint
--- OUTSIDE RECORDS SUMMARY | 2024-05-14 11:15 | XMS_ITS ---
[facility] Address [address] [facility] [address] [facility] [address] [place] [id number] Care Team Providers Care Director Digital Marketing Name Role Phone Chantell Manzano Primary Care Provider Vanessa Martinez Unavailable [phone] Allergies Allergen (clinical drug ingredient) Drug/Non Drug Allergy documented on EMR Reaction Allergy Type Onset Date Status lisinopril Lisinopril cough Drug Allergy Activ e Lortab severe itching Drug Allergy Ac tive acetaminophen / oxycodone Percocet Unknown Drug Allergy Active REASON FOR VISIT go over xrays Medications Medication SIG (Take, Route, Frequency, Duration) Notes Start Date End Date Status Medrol 4 MG as directed orally daily; Duration: 6 days 05/14/2024 Active Meloxicam 15 MG 1 tablet Orally Once a day; Duration: 30 day(s) 05/14/2024 Active Mounjaro 5 MG/0.5ML 5 mg Subcutaneous on ce a week 05/14/2024 Active amLODIPine Besylate 5 MG TAKE ONE TABLET BY MOUTH ONCE A DAY Active Rosuvastatin Calcium 5 MG TAKE ONE TABLET BY MOUTH ONCE A DAY; Duration: 30 days Active Lexapro 10 MG 1 tablet Orally Once a day; Duration: 30 day(s) Active CPAP machine and supplies - as directed as directed Settings: Auto PAP 6/16 cm 01/23/2024 Active Losartan Potassium-HCTZ 100-25 MG 1 tab(s) orally once a day; Duration: 30 days Active Metoprolol Succinate ER 50 MG 1 tab(s) orally once a day; Duration: 30 days Active hydrOXYzine HCl 25 MG 1 tab(s) Orally 4 times a day, prn Active Omeprazole 40 MG TAKE 1 CAPSULE BY MOUTH AT BEDTIME Active CPAP machine and supplies - as directed as directed 01/19/2024 Active Vital Signs Blood pressure systolic 138 mm Hg 05/14/19 25 Blood pressure diastolic 78 mm Hg 025 Heart Rate 80 /min 05/14/2024 Height 63 in 05/14/2024 Weight 201.4 lbs 05/14/2024 BMI 35.67 kg/m2 05/14/2024 Encounters Encounter Location Date Provider Diagnosis [facility] [address] [place], [place] [id number] 05/14/2024 Vanessa Martinez Groin pain, right R1 0.31 ; Trochanteric bursitis of right hip M70.61 and Type 2 diabetes mellitus without complication, without long-term current use of insulin E11.9 Assessments Encounter Date Diagnosis (ICD Code) Assessment Notes Treatment Notes Treatment Clinical Notes Section Notes 05/14/2024 Groin pain, right (ICD-10 - R10.31) U/S showed a slightly enlarged lymph node but it was felt to be benign. Pain has now resolved. 05/14/2024 Trochanteric bursitis of right hip (ICD-10 - M70.61) Improved on her 's meloxicam. Will send steroids and meloxicam for her to continue. 05/14/2024 Type 2 diabetes mellitus without complication, without long-term current use of insulin (ICD-10 - E11.9) Pt would like to increase mounjaro dose. Will recheck labs in May. Plan Of Treatment Medication Medication Name Sig Start Date Stop Date Notes Medrol 4 MG as directed orally d aily; Duration: 6 days 05/14/2024 Meloxicam 15 MG 1 tablet Orally Once a day; Duration: 30 day(s) 05/14/2024 Mounjaro 5 MG/0.5ML 5 mg Subcutaneous once a week 05/14/19 25 Mounjaro 2.5 MG/0.5ML INJECT 1 PREFILLED SYRINGE SUBCUTANEOUSLY ONCE WEEKLY Treatment Notes Assessment Notes Groin pain, right U/S showed a slightl y enlarged lymph node but it was felt to be benign. Pain has now resolved. Trochanteric bursitis of right hip Impro marcelo on her 's meloxicam. Will send steroids and meloxicam for her to continue. Type 2 diabetes mellitus wit hout complication, without long-term current use of insulin Pt would like to increase mounjaro dose. Will recheck labs in May. Next Appt Details Follow Up: May, Reason: Progress Notes * Raina PAULDOB: [birth year] (59 yo F)Acc No.[id number]:05/14/2024 Progress Notes Patient: Raina HERNANDEZ Provider: MELISSA Sutherland :1965 A ge:58 Y S ex:Female Date:05/14/2024 Address:[address] [place] [address] OF [address], [id number] Pcp:Chantell Manzano Subjective: * Chief Complaints: * 1 . Go over xrays. * HPI: H PI: 58 year old female presents with c/o Patient is here today for?Pt is here today to go over recent x ray and U/S s he had done. She was having right hip and groin pain. It is much better since she started her 's meloxicam.. * ROS: D ERMATOLOGY: no R agustina. [...] detector use: no. Marital Status: . 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 Past smoking status: yes, Smoking status: Patient [...] Percocet, Lisinopril: cough. Objective: * Vitals: W t:201.4, Temp:98.3, BP:138/78, HR:80, O2 Sat:92% on RA, Nurse:erika, Ht: 63, BMI:35.67. * Examination: G eneral Examination: General Appearance: N AD. C hest: n ormal shape and expansion. H eart: R SR. L ungs: c lear to auscultation. A bdomen: bowel sounds present, soft and nontender. E xtremities: no ttp in the right groin, full ROM of right hip, still mild tenderness along the trochanteric bursa. Assessment: * Assessment: 1. G roin pain, right - R10.31 (Primary) 2 . T rochanteric bursitis of right hip - M70.61 3 . T ype 2 diabetes mellitus without complication, without long-term current use of insulin - E11.9 Plan: * Treatment: 2. T rochanteric bursitis of right hip Start Medrol Tablet Therapy Pack, 4 MG, as directed, orally, daily, 6 days, 1, Refills 0; S tart Meloxicam Tablet, 15 MG, 1 tablet, Orally, Once a day, 30 day(s), 30, Refills 2. Notes: Improved on her 's meloxicam. Will send steroids and meloxicam for her to continue.? 3. T ype 2 diabetes mellitus without complication, without long-term current use of insulin Stop Mounjaro Solution Auto-injector, 2.5 MG/0.5ML, INJECT 1 PREFILLED SYRINGE SUBCUTANEOUSLY ONCE WEEKLY; S tart Mounjaro Solution Auto-injector, 5 MG/0.5ML, 5 mg, Subcutaneous, once a week, 4, Refills 0. Notes: Pt would like to increase mounjaro dose. Will recheck labs in May. * Procedure Codes: 9 4760 PULSE OX, 3075F SYST BP GE 130 - 139MM HG, 3078F DIAST BP < 80 MM HG * Follow Up: M arch * Images: Billing Information: * Visit Code: 43127 Office Visit, Est Pt., Level 3. * Procedure Codes: 13643 PULSE OX. 3075F SYST BP GE 130 - 139MM HG. 3078F DIAST BP < 80 MM HG. * Electronic signature of MELISSA Gabriel on 01/07/2025 at 08:58 AM EDT Sign off status: Pending * Provider: MELISSA Sutherland Date: 0 05/14/2024 Generated for Mila lebron/Jr/Bryonitting on: 1 08:58 AM EDT History and Physical Notes * HPI (History of Present Illness) Category Sub-Category Detail Notes Category Not es HPI Patient is here today for Pt is here today to go over recent x ray and U/S she had done. She was having right hip and groin pain. It is much better since she started her 's meloxicam. Examination Category Sub-Category Detail Notes Category Not es General Examination Heart: RSR Lungs: clear to auscultatio n Abdomen: bowel sounds present , soft and nontender Extremities: no ttp in the right groin, full ROM of right hip, still mild tenderness along the trochanteric bursa General Appearance: NAD Chest: normal shape and exp ansion
--- OUTSIDE RECORDS SUMMARY | 2024-05-18 09:15 | XMS_ITS ---
Author Organization [facility] Address [address] [facility] [address] [facility] [address] [place] [id number] Care Team Providers Care Head Up Operator Name Role Phone Chantell Manzano Primary Care Provider [phone] Kike Broderick [phone] Allergies Allergen (clinical drug ingredient) Drug/Non Drug Allergy documented on EMR Reaction Allergy Type Onset Date Status lisinopril Lisinopril cough Drug Allergy Activ e Lortab severe itching Drug Allergy Ac tive acetaminophen / oxycodone Percocet Unknown Drug Allergy Active REASON FOR VISIT error- wrong patient Medications Medication SIG (Take, Route, Frequency, Duration) Notes Start Date End Date Status Mounjaro 5 MG/0.5ML 5 mg Subcutaneous on ce a week 05/14/2024 Active amLODIPine Besylate 5 MG TAKE ONE TABLET BY MOUTH ONCE A DAY Active Meloxicam 15 MG 1 tablet Orally Once a day; Duration: 30 day(s) 05/14/2024 Active Losartan Potassium-HCTZ 100-25 MG 1 tab(s) orally once a day; Duration: 30 days Active Metoprolol Succinate ER 50 MG 1 tab(s) orally once a day; Duration: 30 days Active Rosuvastatin Calcium 5 MG TAKE ONE TABLET BY MOUTH ONCE A DAY; Duration: 30 days Active CPAP machine and supplies - as directed as directed 01/19/2024 Active Omeprazole 40 MG TAKE 1 CAPSULE BY MOUTH AT BEDTIME Active Lexapro 10 MG 1 tablet Orally Once a day; Duration: 30 day(s) Active CPAP machine and supplies - as directed as directed Settings: Auto PAP 6/16 cm 01/23/2024 Active hydrOXYzine HCl 25 MG 1 tab(s) Orally 4 times a day, prn Active Vital Signs Weight 0 lbs 05/18/2024 Encounters Encounter Location Date Provider Diagnosis [facility] [address] [place] [id number] 05/18/2024 Kike Broderick Plan Of Treatment No Information Progress Notes * Raina PAULDOB: [birth year] (59 yo F)Acc No.[id number]:05/18/2024 Progress Notes Patient: Raina HERNANDEZ Provider: Kike Broderick M.D. :1965 A ge:58 Y S ex:Female Date:05/18/2024 Address:[address] [place], [id number] Pcp:Chantell Manzano Subjective: * Chief Complaints: * 1 . Error- wrong patient. * ROS: D ERMATOLOGY: no R agustina. [...] no. Marital Status: . 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 Past smoking status: yes, Smoking status: Patient [...] Pharmacist: Settings: Auto PAP 6/16 cm, Taking Lexapro 10 MG Tablet 1 tablet [...] BY MOUTH ONCE A DAY , Taking Mounjaro 5 MG/0.5ML Solution Auto-injector 5 mg Subcutaneous once a week , Taking Meloxicam 15 MG Tablet 1 tablet Orally Once a day , Medication List reviewed and reconciled with the patient * Allergies: L ortab: severe itching, Percocet, Lisinopril: cough. Objective: * Vitals: W t:0, Temp:0, Nurse:m. Assessment: Plan: * Treatment: * Images: Billing Information: * Visit Code: * Procedure Codes: * Electronic signature of Kike Broderick MD on 01/07/2025 at 08:59 AM EDT Sign off status: Pending * Provider: Kike Broderick M.D. Date: 05/18/2024 Generated for Mila lebron/Jr/Parish on: 08:59 AM EDT
--- OUTSIDE RECORDS SUMMARY | 2024-06-10 12:15 | XMS_ITS ---
Author Organization [facility] Address [address] [place] [id number] Care Team Providers Care Paralegal Supervisor Name Role Phone Chantell Manzano Primary Care Provider Kike Broderick [phone] REASON FOR VISIT Follow Up on BP Encounters Encounter Location Date Provider Diagnosis [facility] [address] [place] [phone] 06/10/2024 Kike Broderick Plan Of Treatment No Information Progress Notes * Raina PAULDOB: [birth year] (59 yo F)Acc No.[id number]:06/10/2024 Progress Notes Patient: Raina HERNANDEZ Provider: Kike Broderick M.D. :1965 A ge:58 Y S ex:Female Date:06/10/2024 Address:[address] [id number] Pcp:Chantell Manzano Subjective: * Chief Complaints: * 1 . Follow Up on BP. * Medical History: Objective: * Vitals: Assessment: Plan: * Treatment: * Images: Billing Information: * Visit Code: * Procedure Codes: * Electronic signature of Kike Broderick MD on 01/07/2025 at 08:59 AM EDT Sign off status: Pending * Provider: Kike Broderick M.D. Date: 0 06/10/2024 Generated for Printi ng/Faxing/eTransmitting on: 1 08:59 AM EDT
--- OUTSIDE RECORDS SUMMARY | 2024-12-01 12:45 | XMS_ITS ---
Author Organization [facility] Address [address] [facility] 36 [facility] [address] [place] [phone] Care Team Providers Care Shower Screen Installer Name Role Phone Chantell Manzano Primary Care Provider Vanessa Martinez Unavailable [phone] Allergies Allergen (clinical drug ingredient) Drug/Non Drug [...] 01/19/2024 Active Vital Signs Blood pressure systolic 160 mm Hg 12/02/19 25 Blood pressure diastolic 90 mm Hg 025 Heart Rate 79 /min 12/01/2024 Height 63 in 12/01/2024 Weight 184.6 lbs 12/01/2024 BMI 32.7 kg/m2 12/01/2024 Encounters Encounter Location Date Provider Diagnosis [facility] [address], [place] [phone] 12/01/2024 Vanessa Juan Essential hypertensi on I10 ; Mixed hyperlipidemia [...] Notes Assessment Notes Essential hypertension Fax labs [phone] Pending Test Test Name Order Date H-TSH 12/01/2024 H-CBC 12/01/2024 H-Lipid Panel 12/01/2024 H-CMP 12/01/2024 H-Glycohemoglobin A1C 12/01/2024 Next Appt Details Follow Up: via phone to repo rt test results, Reason: Progress Notes * Raina PAULDOB: [birth year] (59 yo F)Acc No.[id number]:12/01/2024 Progress Notes Patient: Raina HERNANDEZ Provider: MELISSA Sutherland :1965 A ge:59 Y S ex:Female Date:12/01/2024 Address:[address] [place] [address] [address], [id number] Pcp:Chantell Manzano Subjective: * Chief Complaints: * [...] detector use: no. Marital Status: . 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 Past smoking status: yes, Smoking status: Patient [...] * Images: Billing Information: * Visit Code: 71997 Office Visit, Est Pt., Level 4. * Procedure Codes: * Electronic signature of MELISSA Gabriel on 01/07/2025 at 08:59 AM EDT Sign off status: Pending * Provider: MELISSA Sutherland Date: 0 12/01/2024 Generated for Mila lebron/Jr/eTangel luissmitting on: 1 08:59 AM EDT History and [...]
--- OUTSIDE RECORDS SUMMARY | 2024-12-13 07:23 | XMS_ITS ---
Author Organization [facility] Address [address] [facility] [address] [place] [phone] Care Team Providers Care Turning And Beading Machine Operator Name Role Phone Chantell Manzano Primary Care Provider Results Component Value Reference Range Notes Bone density (Not yet review ed by provider) Interpretation:Normal Performing Lab: Notes/Report: Normal Bone density normal Mammogram (Not yet reviewed by provider) Interpretation: Performing Lab: Notes/Report: CT Scan : Chest, low dose (N ot yet reviewed by provider) Interpretation:nothing suspicious, annual f/u Performing Lab: Notes/Report: nothing suspicious, annual f/u REASON FOR VISIT due meng, col, dexa, LDCT Encounters Encounter Location Date Provider Diagnosis [facility] [address] [facility] [address] [place] [phone] 12/13/2024 Chantell Manzano Breast cancer screen ing Z12.31 ; Encounter for screening for osteoporosis Z13.820 and Encounter for screening for lung cancer Z12.2 Assessments Encounter Date Diagnosis (ICD Code) Assessment Notes Treatment Notes Treatment Clinical Notes Section Notes 12/13/2024 Breast cancer screening (ICD-10 - Z12.31) 12/13/2024 Encounter for screening for osteoporosis (ICD-10 - Z13.820) 12/13/2024 Encounter for screening for lung cancer (ICD-10 - Z12.2) Plan Of Treatment Pending Test Test Name Order Date Bone density 12/13/2024 Mammogram 12/13/2024 CT Scan : Chest, low dose 12/13/2024 Progress Notes * Raina PAUL AnamariaDOB: [birth year] (59 yo F)Acc No.[id number]:12/13/2024 Patient: Raina HERNANDEZ :1965 A ge:59 Y S ex:Female Address:[facility] [address] [place], [place] [address] Subjective: * Chief Complaints: * d ue meng, col, dexa, LDCT * Medical History: * Surgical History: * Hospitalization/Major Diagno stic Procedure: * Medications: Objective: * Vitals: * Physical Examination: Assessment: * Assessment: 1. B reast cancer screening - Z12.31 (Primary) 2 . E ncounter for screening for osteoporosis - Z13.820 3 . E ncounter for screening for lung cancer - Z12.2? Plan: * Treatment: 2.?Encounter for screening for osteoporosis?Imaging: Bone density* Gabriela Her 12/13/2024 12:0 6:41 PM EDT >sne to [facility] for referral to [facility] to be scheduled with Mammogram AFTER 12/23/24 3.?Encounter for screening for lung cancer?Imaging: CT Scan : Chest, low dose* Gabriela Her 12/13/2024 12:0 8:34 PM EDT > sent to Cyndi for referal to [facility] * Procedure Codes: * true * Date: Generated for Mila lebron/Jr/Parish on: 1 08:58 AM EDT
--- OUTSIDE RECORDS SUMMARY | 2024-12-22 12:30 | XMS_ITS ---
Author Organization [facility] Address [address] [facility] [address] [facility] [address] [place] [phone] Care Team Providers Care Advertising Material Distributor Name Role Phone Chantell Manzano Primary Care Provider Vanessa Martinez Unavailable [phone] Allergies Allergen (clinical drug ingredient) Drug/Non Drug [...] Onc e a day Active Vital Signs Blood pressure systolic 148 mm Hg 12/23/19 25 Blood pressure diastolic 80 mm Hg 025 Heart Rate 77 /min 12/22/2024 Height 63 in 12/22/2024 Weight 179.8 lbs 12/22/2024 BMI 31.85 kg/m2 12/22/2024 Encounters Encounter Location Date Provider Diagnosis [facility] [address] [place] [phone] 12/22/2024 Vanessa Martinez Essential hypertensi on I10 [...] repo rt progress, Reason: Progress Notes * Raina PAUL AnamariaDOB: [birth year] (59 yo F)Acc No.[id number]:12/22/2024 Patient: Raina HERNANDEZ Provider: MELISSA Sutherland :1965 A ge:59 Y S ex:Female Date:12/22/2024 Address:[address] [place] [address] OF [address] [place], [id number] Pcp:Chantell Manzano Subjective: * Chief Complaints: * [...] detector use: no. Marital Status: . 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 * Procedure Codes: * Electronic signature of MELISSA Gabriel on 01/07/2025 at 08:59 AM EDT Sign off status: Pending * Provider: MELISSA Sutherland Date: Generated for Mila lebron/Jr/eTransmitting on: 08:59 AM EDT History and Physical Notes [...]
--- OUTSIDE RECORDS SUMMARY | 2025-01-07 08:59 | XMS_ITS | Patient Health Record ---
[facility] Address [address] [facility] [address] [place] [id number] Care Team Providers Care Procedure Writer Name Role Phone Chantell Manzano Primary Care Provider Kike Broderick Unavailable [phone] Fatemeh Younger Unavailable [phone] Vanessa Martinez Unavailable [phone] Allergies Allergen (clinical drug ingredient) Drug/Non Drug [...] date:09/22/2024 04:02:24 PM Interpretation: Performing Lab: Notes/Report: Bone density (Not yet review ed by provider) Interpretation:Normal Performing Lab: Notes/Report: Normal Bone density normal Mammogram (Not yet reviewed by provider) Interpretation: Performing Lab: Notes/Report: CT Scan : Chest, low dose (N ot yet reviewed by provider) Interpretation:nothing suspicious, annual f/u Performing Lab: Notes/Report: nothing suspicious, annual f/u H-CBC Reviewed date:08/05/2024 09:41:09 AM Interpretation:hgb 16.5, [...] Level > 8% Poorly Controlled Diabetic Level Ultrasound : groin, right Reviewed date:05/14/2024 04:30:17 PM Interpretation:right inguinal lymph nodes Performing Lab: Notes/Report: right inguinal lymph nodes X ray : Hip, right Reviewed date:05/14/2024 04:30:39 PM Interpretation:nothing acute Performing Lab: Notes/Report: nothing acute Medications Medication SIG (Take, Route, Frequency, Duration) [...] Once a day; Duration: 30 days Active Rosuvastatin Calcium 5 MG 1 tablet Orally Once a day; Duration: 90 days Active Waldemar Low Dose 81 MG 1 tablet Orally Onc e a day Active Immunizations Vaccine Route Administration Date Status Comme nts COVID 19 Moderna Unknown 03/31/2020 Administered COVID 19 Moderna Unknown 05/02/2020 Administered PNEUMOVAX 23 VACCINE IM Intramuscular 07/06/2018 Administe red Tetanus Tdap-Adacel (over 7yrs) IM Intramuscular 07/06/2018 Administered Problems Problem Type SNOMED Code ICD Code Onset Dates Problem Status W/U Status Risk Notes Problem Hypokalemia (40297698) Hypokalemia (E87.6) Active confirmed Problem Essential hypertension (48769284) Essential hypertension (I10) Active confirmed Problem Anxiety (32783599) Anxiety (F41.9) Active confi rmed Problem Obstructive sleep apnea (04679545) Obstructive sleep apnea (G47.33) Active confirmed Problem Mixed anxiety and depressive disorder (794312469) Depression with anxiety (F41.8) Active confirmed Problem Obese class I (560419031357137) BMI 33.0-33.9,adult (Z68.33) Active confirmed Problem Mixed hyperlipidemia (895381366) Mixed hyperlipidemia (E78.2) Active confirmed Problem Simple chronic bronchitis (60867052) Simple chronic bronchitis (J41.0) Active confirmed Problem Tobacco dependence (63316198) Tobacco dependence (F17.200) Active confirmed Problem Gastroesophageal reflux disease (disorder) (441893625) Chronic GERD (K21.9) Active confirmed Problem Body mass index 30.0 0 to 34.99 (195665071287413) BMI 34.0-34.9,adult (Z68.34) Active confirmed Problem Essential hypertension (09716410) Essential hypertension, hypertension with unspecified goal (I10) Active confirmed Problem Type II diabetes mellitus without complication (460416244) Type 2 diabetes mellitus without complication, without long-term current use of insulin (E11.9) Active confirmed Problem Obese class I (finding) (661815011586534) Obesity (BMI 30.0-34.9) (E66.9) Active confirmed Problem Allergic rhinitis (40907471) Seasonal allergic rhinitis due to other allergic trigger (J30.89) Active confirmed Problem Pure hypercholesterolemia (008240769) Pure hypercholesterolemia (E78.00) Active confirmed Problem Tobacco use (936509583) Tobacco use disorder (F17.200) Active confirmed Problem Sleep apnea (28133461) Severe sleep apnea (G47.30) Active confirmed Problem Paresthesia of finge r (718451451) Paresthesia of finger (R20.2) Active confirmed Problem Chronic obstructive pulmonary disease (60118105) Stage 2 moderate COPD by GOLD classification (J44.9) Active confirmed Problem Obese class I (finding) (626982637427429) Obesity, Class I, BMI 30-34.9 (E66.9) Active confirmed Problem Gastroesophageal reflux disease (233645510) Gastroesophageal reflux disease, unspecified whether esophagitis present (K21.9) Active confirmed Problem Primary hypertension (89008086) Primary hypertension (I10) Active confirmed Vital Signs Heart Rate 77 /min 12/22/2024 Blood pressure diastolic 80 mm Hg 12/22/2024 Height 63 in 12/22/2024 Blood pressure systolic 148 mm Hg 12/22/2024 Weight 179.8 lbs 12/22/2024 BMI 31.85 kg/m2 12/22/2024 Encounters Encounter Location Date Provider Diagnosis [facility] [address] [id number] 05/10/2024 Fatemeh Younger Groin pain, right R10.31 and Hip pain M25.559 [facility] [address] [id number] 05/14/2024 Vanessa Crowdy Groin pain, right R1 0.31 ; Trochanteric bursitis of right hip M70.61 and Type 2 diabetes mellitus without complication, without long-term current use of insulin E11.9 [facility] [address] [place] [id number] 05/18/2024 R Dl Puentefleet [facility] [address] [id number] 12/01/2024 Vanessa Crowdy Essential hypertensi on I10 ; Mixed hyperlipidemia E78.2 ; Type 2 diabetes mellitus without complication, without long-term current use of insulin E11.9 ; Stage 2 moderate COPD by GOLD classification J44.9 ; Depression with anxiety F41.8 ; Chronic GERD K21.9 and Anxiety F41.9 [facility] [address] [place] [id number] 12/22/2024 Vanessa Crowdy Essential hypertensi on I10 [facility] [address] [place] [id number] 01/19/2024 Vanessa Martinez Obstructive sleep ap leonid G47.33 [facility] [address] [place], [place] [id number] 01/23/2024 Chantell Manzano Severe sleep apnea G 47.30 [facility] [address] [place], [place] [id number] 02/11/2024 Chantell Manzano [facility] [address] [place], [place] [id number] 03/12/2024 Chantell Manzano [facility] [address] [place], [place] [id number] 06/30/2024 Vanessa Martinez Mixed hyperlipidemia E78.2 ; Pure hypercholesterolemia E78.00 ; Type 2 diabetes mellitus without complication, without long-term current use of insulin E11.9 and Primary hypertension I10 [facility] [address] [place], [place] [id number] 07/29/2024 Chantell Manzano [facility] [address] [place], [place] [id number] 08/05/2024 Vanessa Martinez [facility] [address] [place], [place] [id number] 09/08/2024 Chantell Manzano [facility] [address] [place], [place] [id number] 09/22/2024 Vanessa Danieldanay [facility] [address] [place], [place] [id number] 10/21/2024 Chantell Manzano Anxiety F41.9 and Trochanteric bursitis of right hip M70.61 [facility] [address] [place], [place] [id number] 12/02/2024 Chantell Manzano [facility] [address] [place], [place] [id number] 12/13/2024 Chantell Manzano Breast cancer screen ing [...] (ICD-10 - E11.9) 12/01/2024 Stage 2 moderate [employer]LINER D by GOLD classification (ICD-10 - J44.9) [...] Coverage End Date [facility] [address] [address] [place] [address] [id number] EddieRaina carr Self - patient is the insured Medical (General) History Medical History History ICD Code Tobacco Use Hypertension Anxiety Moderna Covid vaccine x2 Mar 2020 Surgical History Surgery Date(Month/Year) Essure placement - 01/2008 Ablasion - 02/2008 ablasion- Dr. Boyd 03-05-10 total hysterectomy 03-07-12
[2025-01-07 09:45] LABS: Hematocrit 49.4 % (37.0-47.0); Hemoglobin 16.6 g/dL (12.2-16.2); Immature Granulocytes % 0.1 %; Mean Corpuscular HGB Conc 33.6 g/dL (31.8-35.4); Mean Corpuscular Hemoglobin 30.3 pg (27.0-31.2); Mean Corpuscular Volume 90.1 fl (81-99); Nucleated Red Blood Cells % 0 %; Platelet Count 265 K/mm3 (142-424); Red Blood Count 5.48 M/mm3 (4.20-5.40); Red Cell Distribution Width-SD 41.7 fL; White Blood Count 6.9 K/mm3 (4.8-10.8)
[2025-01-07 10:10] LABS: Hemoglobin A1C 5.7 % (4.0-6.0)
[2025-01-07 10:27] LABS: Alanine Aminotransferase 26 U/L (12-78); Albumin Level 4.2 g/dl (3.5-5.0); Albumin/Globulin Ratio 1.8 (1.1-1.8); Alkaline Phosphatase 81 U/L (38-126); Anion Gap 14.6 mEq/L (5-15); Aspartate Amino Transferase 23 U/L (14-36); Bilirubin,Total 0.7 mg/dl (0.2-1.3); Blood Urea Nitrogen 15 mg/dl (7-17); Calcium 9.5 mg/dl (8.4-10.2); Carbon Dioxide 29 mmol/L (22.0-30.0); Chloride 102 mmol/L (98-107); Cholesterol 161 mg/dl (140-200); Creatinine,Serum 1.00 mg/dl (0.52-1.04); Estimated Glomerular Filt Rate 57 ml/min (>60); GFR (African American) 68 ML/MIN (>60); Globulin 2.3 g/dL (1.3-3.2); Glucose 110 mg/dl (74-100); HDL Cholesterol 38 mg/dl (40-60); Potassium 4.6 mmoL/L (3.5-5.1); Sodium 141 mmol/L (136-145); Total Protein,Serum 6.5 g/dl (6.3-8.2); Triglycerides 174 mg/dl (30-150)
[2025-01-07 10:57] LABS: Thyroid Stimulating Hormone 2.99 uIU/mL (0.465-4.68)
== END 2025-01-07 23:59 | disposition home or self-care (01) ==
LOC: LAB 08:54
PROVIDERS: PCP Physician Assistant; Visit Provider Physician Assistant
DX: E78.2 Mixed hyperlipidemia (principal); I10 Essential (primary) hypertension; E11.9 Type 2 diabetes mellitus without complications
CPT/HCPCS: 36415; 80053; 80061; 83036; 84443; 85025